=== PATIENT | female | born 1955 | race Caucasian/White ===

== ENCOUNTER 2017-11-14 08:00 | Outpatient (CLI) | payer OTHER ==
[2017-11-14 13:16] LABS: BASOPHILS % (AUTO) 0.4 %; EOSINOPHILS # (AUTO) 0.1 10^3/uL (0.0-0.7); HGB - HEMOGLOBIN 13.1 g/dL (12.0-16.0); LYMPHOCYTES # (AUTO) 0.8 10^3/uL (1.5-3.5); LYMPHOCYTES % (AUTO) 25.8 %; MEAN CORPUSCULAR HEMOGLOBIN 29.7 pg (27.0-31.0); MEAN CORPUSCULAR HGB CONC 34.8 g/dL (32.0-36.0); MEAN CORPUSCULAR VOLUME 85.4 fL (81.0-99.0); MEAN PLATELET VOLUME 7.9 fL (7.9-10.8); MONOCYTES # (AUTO) 0.2 10^3/uL (0.0-1.0); MONOCYTES % (AUTO) 6.8 %; PLT - PLATELET COUNT 189 10^3/uL (130-450); RED CELL DISTRIBUTION WIDTH 13.8 % (12.0-15.0); WHITE BLOOD COUNT 3.1 x10^3/uL (4.8-10.8)
[2017-11-14 13:40] LABS: HB2 TOTAL 13.4 g/dL; HEMOGLOBIN A1C 0.46 g/dL; HEMOGLOBIN A1C % 5.3 % (4.6-6.2)
[2017-11-14 13:45] LABS: ALBUMIN/GLOBULIN RATIO 1.6 (1.0-2.2); ALKALINE PHOSPHATASE 69 IU/L (42-121); ALT ALANINE AMINOTRANSFERASE 14 IU/L (10-60); AST ASPARTATE AMINOTRANSFERASE 20 IU/L (10-42); BILIRUBIN,TOTAL 0.5 mg/dL (0.2-1.0); BUN - BLOOD UREA NITROGEN 19 mg/dL (6-20); CALCIUM 8.9 mg/dL (8.5-10.3); CARBON DIOXIDE - CO2 29 mmol/L (21-32); CHLORIDE 102 mmol/L (101-111); CHOL/HDL RATIO 3.4 (<4.4); CHOLESTEROL 185 mg/dL; CREATININE 0.7 mg/dL (0.4-1.0); GFR - MDRD 85 (>89); GLUCOSE 105 mg/dL (70-100); HDL CHOLESTEROL 54 mg/dL; LDL CHOLESTEROL,CALCULATED 122 mg/dL; LDL/HDL RATIO 2.3 (<4.4); SODIUM 138 mmol/L (135-145); TOTAL PROTEIN 6.5 g/dL (6.7-8.2); VLDL CHOLESTEROL 9 mg/dL
[2017-11-14 13:46] LABS: THYROID STIMULATING HORMONE 1.77 uIU/mL (0.34-5.60)
[2017-11-14 13:48] LABS: FREE T4 (FREE THYROXINE) 0.95 ng/dL (0.58-1.64)
== END 2017-11-14 08:01 | disposition home or self-care (01) ==
LOC: LAB.WCP 08:00
PROVIDERS: ATTEND Physician Assistant
DX: Z00.00 Encounter for general adult medical examination without abnormal findings (principal); Z13.220 Encounter for screening for lipoid disorders; E03.9 Hypothyroidism, unspecified
CPT/HCPCS: 36415; 80053; 80061; 83036; 83721; 84439; 84443; 85025

== ENCOUNTER 2018-10-02 08:00 | Outpatient (CLI) | payer OTHER ==
[2018-10-02 14:25] LABS: H. PYLORIS ANTIGEN STL NEGATIVE (Negative)
== END 2018-10-02 23:59 | disposition home or self-care (01) ==
LOC: LAB.WCP 08:00
PROVIDERS: ATTEND Physician Assistant
DX: R19.7 Diarrhea, unspecified (principal)
CPT/HCPCS: 87045; 87046; 87177; 87209; 87338; 87493

== ENCOUNTER 2019-01-28 07:00 | Outpatient (CLI) | payer OTHER | END 2019-01-28 23:59 | disposition home or self-care (01) | LOC: LAB.WCP 07:00 | PROVIDERS: ATTEND Physician Assistant | DX: E03.9 Hypothyroidism, unspecified (principal) | CPT/HCPCS: 36415; 84443 ==

== ENCOUNTER 2019-02-01 08:00 | Outpatient (CLI) | payer OTHER ==
[2019-02-01 12:17] LABS: BASOPHILS % (AUTO) 0.5 %; EOSINOPHILS # (AUTO) 0.1 10^3/uL (0.0-0.7); EOSINOPHILS % (AUTO) 3.1 %; HGB - HEMOGLOBIN 12.6 g/dL (12.0-16.0); LYMPHOCYTES # (AUTO) 1.2 10^3/uL (1.5-3.5); LYMPHOCYTES % (AUTO) 29.3 %; MEAN CORPUSCULAR HEMOGLOBIN 28.9 pg (27.0-31.0); MEAN CORPUSCULAR HGB CONC 32.9 g/dL (32.0-36.0); MEAN CORPUSCULAR VOLUME 87.8 fL (81.0-99.0); MEAN PLATELET VOLUME 9.5 fL (7.9-10.8); MONOCYTES # (AUTO) 0.4 10^3/uL (0.0-1.0); MONOCYTES % (AUTO) 10.1 %; NEUTROPHILS # (AUTO) 2.4 10^3/uL (1.5-6.6); NEUTROPHILS % (AUTO) 56.5 %; PLT - PLATELET COUNT 213 10^3/uL (130-450); RED BLOOD COUNT 4.36 10^6/uL (4.20-5.40); RED CELL DISTRIBUTION WIDTH 14.2 % (12.0-15.0); WHITE BLOOD COUNT 4.2 x10^3/uL (4.8-10.8)
[2019-02-01 12:29] LABS: ALBUMIN/GLOBULIN RATIO 1.7 (1.0-2.2); CALCIUM 8.5 mg/dL (8.5-10.3); CREATININE 0.9 mg/dL (0.4-1.0); TOTAL PROTEIN 6.3 g/dL (6.7-8.2)
== END 2019-02-01 23:59 | disposition home or self-care (01) ==
LOC: LAB.WCP 08:00
PROVIDERS: ATTEND Physician Assistant
DX: R10.84 Generalized abdominal pain (principal)
CPT/HCPCS: 36415; 80053; 85025

== ENCOUNTER 2019-02-04 14:53 | Outpatient (CLI) | payer OTHER ==
[2019-02-04] MEDS ORDERED: IOVERSOL 320 50 ML VIAL ONE (14:58)
[2019-02-04] MEDS ORDERED: IOVERSOL 320 100 ML VIAL IVP ONE ×2 (14:58→17:38)
[2019-02-04] MEDS ORDERED: IOVERSOL 320 50 ML VIAL PO ONE (17:38)
--- NOTE | 2019-02-05 11:20 | CT Report ---
Reason: ABD PAIN Procedure Date: 02/04/2019 Accession Number: [id number] / [id number] Procedure: CT - Abdomen/Pelvis W CPT Code: Final Report FULL RESULT: EXAM: CT ABDOMEN AND PELVIS EXAM DATE: 02/04/2019 04:11 PM. CLINICAL HISTORY: Abdominal pain. COMPARISONS: None. TECHNIQUE: Routine helical CT imaging was performed through the abdomen and pelvis. IV contrast: OPTIRAY 320; 100 mL. Enteric contrast: No. Reconstructions: Coronal and sagittal. In accordance with CT protocol optimization, one or more of the following dose reduction techniques were utilized for this exam: automated exposure control, adjustment of mA and/or KV based on patient size, or use of iterative reconstructive technique. FINDINGS: Lung Bases: Small to moderate hiatal hernia. No cardiac enlargement. No pleural or pericardial effusion. Liver: Normal. No masses. Gallbladder/Bile Ducts: Multiple gallstones are noted. Gallbladder is mildly distended and has a somewhat tensed appearance. Calcifications and wall thickening are noted near the fundus on image 4, 38. Mild adjacent fat stranding is noted near the fundus of the gallbladder best seen on image 6, 19. Apparent stone in the gallbladder neck or fundus best seen on image 6, 31. No common bile duct dilation. Spleen: Enlarged, 16.3 cm in length. No mass. Pancreas: Normal. Adrenal Glands: Normal. Kidneys: Normal. No masses or hydronephrosis. Peritoneal Cavity/Bowel: No pneumoperitoneum, adenopathy, mass or acute inflammation. Small volume ascites is noted. There are multiple diverticula seen which most severely affect the sigmoid colon. No wall thickening or adjacent inflammation seen. No obstruction noted. Appendix not seen. No right lower quadrant inflammation. Patient is status post gastric banding. Gastric band is in normal alignment. Remaining stomach, small bowel and large bowel are normal. Pelvic Organs: Uterus is absent. Normal bladder. Small-volume ascites is noted in the pelvis. Both ovaries and adnexa are grossly unremarkable for the patient's age. Possible left adnexal calcification noted on image 4, 71. No collection, pelvic mass or adenopathy. Vasculature: Diffuse atheromatous plaques are present in the abdominal aorta and branch vessels. No aneurysm. Normal IVC. Bones: No significant abnormality. Other: None. IMPRESSION: 1. Multiple gallstones with mildly distended gallbladder. Apparent calcification in the gallbladder neck or proximal cystic duct noted. Mild fat stranding near the fundus could represent early acute cholecystitis. Fundal wall thickening with evidence of wall calcification could represent a component of porcelain gallbladder possibly due to chronic cholecystitis. Correlate clinically. Ultrasound and/or nuclear medicine hepatobiliary study may be helpful for further evaluation. 2. No liver mass or intrahepatic bile duct dilation. Portal vein is patent. 3. Diverticulosis without active inflammation. 4. Previous hysterectomy. 5. Splenomegaly. No mass. 6. Status post gastric banding. Normal alignment of the gastric band. Small to moderate hiatal hernia. RADIA
== END 2019-02-04 14:54 | disposition home or self-care (01) ==
LOC: DI 14:53
PROVIDERS: ATTEND Physician Assistant
DX: K80.80 Other cholelithiasis without obstruction (principal); K57.30 Diverticulosis of large intestine without perforation or abscess without bleeding; R16.1 Splenomegaly, not elsewhere classified; K44.9 Diaphragmatic hernia without obstruction or gangrene; Z90.710 Acquired absence of both cervix and uterus
CPT/HCPCS: 74177; Q9967

== ENCOUNTER 2019-03-14 06:06 | Day surgery (SDC) | payer OTHER ==
[2019-03-14] MEDS ORDERED: fentaNYL 250 MCG/5 ML VIAL IVP ONE (06:07)
[2019-03-14] MEDS ORDERED: MIDAZOLAM 2 MG/2 ML VIAL IVP ONE (06:07)
[2019-03-14] MEDS ORDERED: LACTATED RINGERS 1,000 ML IV ONE (06:57)
[2019-03-14 09:04] VITALS: BP 112/58
== END 2019-03-14 06:07 | disposition home or self-care (01) ==
LOC: SDS 06:06
PROVIDERS: ATTEND Surgery
PROC: 0DBL8ZZ Excision of Transverse Colon, Via Natural or Artificial Opening Endoscopic (ICD-10-PCS; 2019-03-14)
PROC: 0DBE8ZX Excision of Large Intestine, Via Natural or Artificial Opening Endoscopic, Diagnostic (ICD-10-PCS; principal; 2019-03-14 07:30)
DX: K57.30 Diverticulosis of large intestine without perforation or abscess without bleeding (principal); D12.3 Benign neoplasm of transverse colon; K64.8 Other hemorrhoids; Z98.84 Bariatric surgery status
CPT/HCPCS: 45380; 83630; 87015; 87177; 87209; 87272; 87329; 87493; J3010; J7120

== ENCOUNTER 2020-03-02 14:10 | Outpatient (CLI) | payer MEDICARE, OTHER ==
[2020-03-02 18:01] LABS: EOSINOPHILS % (AUTO) 2.2 %; HGB - HEMOGLOBIN 8.9 g/dL (12.0-16.0); LYMPHOCYTES # (AUTO) 0.4 10^3/uL (1.5-3.5); LYMPHOCYTES % (AUTO) 27.9 %; MEAN CORPUSCULAR HEMOGLOBIN 22.5 pg (27.0-31.0); MEAN CORPUSCULAR HGB CONC 28.5 g/dL (32.0-36.0); MEAN CORPUSCULAR VOLUME 78.8 fL (81.0-99.0); MEAN PLATELET VOLUME 10.1 fL (7.9-10.8); MONOCYTES # (AUTO) 0.2 10^3/uL (0.0-1.0); NEUTROPHILS # (AUTO) 0.8 10^3/uL (1.5-6.6); NEUTROPHILS % (AUTO) 58.2 %; PLT - PLATELET COUNT 155 10^3/uL (130-450); RED BLOOD COUNT 3.96 10^6/uL (4.20-5.40); RED CELL DISTRIBUTION WIDTH 16.9 % (12.0-15.0)
[2020-03-02 18:14] LABS: ALBUMIN 3.8 g/dL (3.2-5.5); ALBUMIN/GLOBULIN RATIO 1.4 (1.0-2.2); ALKALINE PHOSPHATASE 101 IU/L (42-121); ALT ALANINE AMINOTRANSFERASE 16 IU/L (10-60); AST ASPARTATE AMINOTRANSFERASE 18 IU/L (10-42); BILIRUBIN,TOTAL 0.6 mg/dL (0.2-1.0); BUN - BLOOD UREA NITROGEN 14 mg/dL (6-20); CALCIUM 8.7 mg/dL (8.5-10.3); CARBON DIOXIDE - CO2 26 mmol/L (21-32); CHLORIDE 102 mmol/L (101-111); CHOL/HDL RATIO 4.8 (<4.4); CHOLESTEROL 145 mg/dL; CREATININE 0.8 mg/dL (0.4-1.0); GLUCOSE 109 mg/dL (70-100); HDL CHOLESTEROL 30 mg/dL; LDL CHOLESTEROL,CALCULATED 96 mg/dL; LDL/HDL RATIO 3.2 (<4.4); SODIUM 136 mmol/L (135-145); TOTAL PROTEIN 6.5 g/dL (6.7-8.2); VLDL CHOLESTEROL 19 mg/dL
[2020-03-02 18:51] LABS: FOLLICLE STIMULATING HORMONE 63.09 mIU/mL
[2020-03-02 19:58] LABS: PLATELET ESTIMATE, MANUAL NORMAL (130-450,000) (NORMAL); PLATELET MORPHOLOGY NORMAL APPEARANCE (NORMAL)
[2020-03-03 19:03] LABS: WHITE BLOOD COUNT 1.4 x10^3/uL (4.8-10.8)
[2020-03-03 19:10] LABS: % IRON SATURATION 5 % (20-50); IRON 25 ug/dL (28-170); TOTAL IRON BINDING CAPACITY 468 ug/dL (250-450); TRANSFERRIN 334 mg/dL (192-382)
== END 2020-03-02 23:59 | disposition home or self-care (01) ==
LOC: LAB.WCP 14:10
PROVIDERS: ATTEND Physician Assistant
DX: N95.1 Menopausal and female climacteric states (principal); D64.9 Anemia, unspecified; E03.9 Hypothyroidism, unspecified
CPT/HCPCS: 36415; 80050; 80061; 82728; 83001; 83540; 83721; 84466

== ENCOUNTER 2020-03-23 08:00 | Outpatient (CLI) | payer MEDICARE, OTHER ==
[2020-03-23 18:42] LABS: EOSINOPHILS % (AUTO) 2.2 %; HGB - HEMOGLOBIN 8.2 g/dL (12.0-16.0); LYMPHOCYTES # (AUTO) 0.3 10^3/uL (1.5-3.5); LYMPHOCYTES % (AUTO) 24.6 %; MEAN CORPUSCULAR HGB CONC 28.3 g/dL (32.0-36.0); MEAN PLATELET VOLUME 9.7 fL (7.9-10.8); MONOCYTES # (AUTO) 0.2 10^3/uL (0.0-1.0); MONOCYTES % (AUTO) 11.6 %; NEUTROPHILS # (AUTO) 0.8 10^3/uL (1.5-6.6); NEUTROPHILS % (AUTO) 60.9 %; PLT - PLATELET COUNT 134 10^3/uL (130-450); RED BLOOD COUNT 3.72 10^6/uL (4.20-5.40); RED CELL DISTRIBUTION WIDTH 17.3 % (12.0-15.0)
[2020-03-23 18:49] LABS: ALBUMIN 3.8 g/dL (3.2-5.5); ALBUMIN/GLOBULIN RATIO 1.5 (1.0-2.2); BILIRUBIN,TOTAL 0.9 mg/dL (0.2-1.0); CALCIUM 9.2 mg/dL (8.5-10.3); CREATININE 0.9 mg/dL (0.4-1.0); TOTAL PROTEIN 6.3 g/dL (6.7-8.2)
[2020-03-23 19:36] LABS: PLATELET ESTIMATE, MANUAL DECREASED (<130,000) (NORMAL); PLATELET MORPHOLOGY NORMAL APPEARANCE (NORMAL)
[2020-03-23 20:29] LABS: WHITE BLOOD COUNT 1.4 x10^3/uL (4.8-10.8)
== END 2020-03-23 23:59 | disposition home or self-care (01) ==
LOC: LAB.WCP 08:00
PROVIDERS: ATTEND Physician Assistant
DX: D61.818 Other pancytopenia (principal)
CPT/HCPCS: 36415; 80053; 85025

== ENCOUNTER 2020-04-21 08:00 | Outpatient (CLI) | payer MEDICARE, OTHER | END 2020-04-21 23:59 | disposition home or self-care (01) | LOC: LAB.R 08:00 | PROVIDERS: ATTEND Physician Assistant Medical | DX: N39.0 Urinary tract infection, site not specified (principal) | CPT/HCPCS: 87077; 87086; 87181 ==

== ENCOUNTER 2020-07-16 08:52 | Outpatient (CLI) | payer MEDICARE, OTHER | END 2020-07-16 08:53 | disposition home or self-care (01) | LOC: DI 08:52 | PROVIDERS: ATTEND Physician Assistant Medical | DX: I51.7 Cardiomegaly (principal); I35.1 Nonrheumatic aortic (valve) insufficiency | CPT/HCPCS: 93306 ==

== ENCOUNTER 2020-07-27 16:44 | Outpatient (CLI) | payer MEDICARE, OTHER | END 2020-07-27 16:45 | disposition home or self-care (01) | LOC: COV 16:44 | PROVIDERS: ATTEND Surgery | DX: Z01.812 Encounter for preprocedural laboratory examination (principal); D64.9 Anemia, unspecified; D46.9 Myelodysplastic syndrome, unspecified; Z20.822 Contact with and (suspected) exposure to COVID-19 ==

== ENCOUNTER 2020-07-28 07:41 | Day surgery (SDC) | payer MEDICARE, OTHER ==
[2020-07-28] MEDS ORDERED: LACTATED RINGERS 1,000 ML IV ONE ×3 (08:03→12:10)
[2020-07-28] MEDS: ONDANSETRON 4 MG/2 ML VIAL ONE ×2 (08:23→11:55)
[2020-07-28] MEDS ORDERED: MIDAZOLAM 2 MG/2 ML VIAL ONE ×4 (10:11→10:53)
[2020-07-28] MEDS ORDERED: fentaNYL 250 MCG/5 ML VIAL ONE (10:12)
[2020-07-28] MEDS ORDERED: PROPOFOL 200 MG/20 ML VIAL IVP ONE (10:55)
[2020-07-28] MEDS ORDERED: ONDANSETRON 4 MG/2 ML VIAL ONE (11:50)
[2020-07-28] MEDS ORDERED: SCOPOLAMINE PATCH TOP ONE (12:08)
[2020-07-28 12:37] VITALS: BP 140/71
== END 2020-07-28 07:42 | disposition home or self-care (01) ==
LOC: SDS 07:41
PROVIDERS: ATTEND Surgery
PROC: 0DB78ZX Excision of Stomach, Pylorus, Via Natural or Artificial Opening Endoscopic, Diagnostic (ICD-10-PCS; principal; 2020-07-28 09:00)
DX: D50.9 Iron deficiency anemia, unspecified (principal); K57.30 Diverticulosis of large intestine without perforation or abscess without bleeding; K62.2 Anal prolapse; K29.50 Unspecified chronic gastritis without bleeding; K44.9 Diaphragmatic hernia without obstruction or gangrene; K20.90 Esophagitis, unspecified without bleeding; T88.52XA Failed moderate sedation during procedure, initial encounter; E07.9 Disorder of thyroid, unspecified; F32.9 Major depressive disorder, single episode, unspecified; F41.9 Anxiety disorder, unspecified; Z79.899 Other long term (current) drug therapy
CPT/HCPCS: 43239; 45378; J3010; J3490; J7120

== ENCOUNTER 2020-08-06 09:29 | Outpatient (CLI) | payer MEDICARE, OTHER ==
--- NOTE | 2020-08-06 16:43 | Ultrasound Report ---
PROCEDURE: Abdomen Complete INDICATIONS: PANCYTOPENIA TECHNIQUE: Real-time scanning was performed of the abdominal and retroperitoneal organs, with image documentatio n. COMPARISON: None. FINDINGS: Liver: Liver is normal in size and homogeneous in echotexture. Liver demonstrates normal echotexture . No focal hepatic mass lesions. Gallbladder: Gallstones and sludge noted in the gallbladder lumen. Gallbladder wall is normal in thic kness measuring 1.4 mm. No pericholecystic fluid. No sonographic Cash sign. Biliary ducts: Intrahepatic bile ducts are non-dilated. Extrahepatic bile duct caliber measures 6.0 mm. Normal is 6-7 mm or less in diameter, or 10 mm or less post-cholecystectomy. Pancreas: Visualized portions of the pancreas are sonographically normal. Spleen: Spleen is enlarged measuring 27.3 x 23.7 x 12.4 cm. Spleen is homogeneous in echotexture. Kidneys: Kidneys are normal in size and echotexture. Right kidney measures 11.2 cm long; left kidne y measures 8.6 cm long. No hydronephrosis or nephrolithiasis. No solid masses. There is a 1.2 x 1.0 1.0 cm right renal cyst. Aorta: Visualized aorta is normal in caliber at less than 3 cm. Iliacs: Obscured by bowel gas and cannot be evaluated. IVC: Intrahepatic inferior vena cava is patent. Miscellaneous: Small amount of scattered ascites. IMPRESSION: 1. Splenomegaly. 2. Cholelithiasis without sonographic evidence of cholecystitis. 3. Left renal atrophy. 4. Ascites. Reviewed by: Kizzy Whitaker MD, PhD on 08/06/2020 4:41 PM PDT Approved by: Kizzy Whitaker MD, PhD on 08/06/2020 4:41 PM PDT Station ID: [id number]
== END 2020-08-06 09:30 | disposition home or self-care (01) ==
LOC: DI 09:29
PROVIDERS: ATTEND Internal Medicine Hematology & Oncology
DX: R16.1 Splenomegaly, not elsewhere classified (principal); K80.20 Calculus of gallbladder without cholecystitis without obstruction; N26.1 Atrophy of kidney (terminal); R18.8 Other ascites

== ENCOUNTER 2020-10-07 16:40 | Emergency (ER) | payer MEDICARE, OTHER ==
[2020-10-07] MEDS ORDERED: oxyCODONE 5 MG TABLET PO STA (17:02)
[2020-10-07] MEDS ORDERED: ONDANSETRON ODT 4 MG TABLET TL STA (17:09)
--- NOTE | 2020-10-07 17:11 | ED Physician Documentation ---
PD HPI ABD PAIN - Stated complaint Stated Complaint: LEFT SIDED PX, SWOLLEN ABD,NAUSEA,DIARRHEA - Chief complaint Chief Complaint: Abd Pain - History obtained from History obtained from: Patient - Additional information Additional information: 65-year-old woman has been dealing with symptomatic splenomegaly for the last 3 months. She is in the midst of a thorough work-up suggesting probably a malign ant cause. Heme-onc notes were reviewed. Has a PET scan this Monday. She is here for symptom relief, Mostly nausea, diarrhea, and Left-sided abdominal pain. 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 - Present Medications Home Medications: Ambulatory Orders Medication Instructions Recorded Confirmed Levothyroxine [Synthroid] 88 mcg PO DAILY 03/13/19 09/25/20 Ondansetron Odt [Zofran Odt] 4 mg PO DAILY 03/14/19 09/25/20 Vit B Comp C No.24/Iron/Folic 1 tab PO DAILY 07/27/20 09/25/20 [Nephron FA Tablet] Ondansetron Odt [Zofran] 4 mg TL Q6H PRN #30 tablet 10/07/20 oxyCODONE [Roxicodone] 1 - 2 tab PO Q6H PRN #30 tablet 10/07/20 - Allergies Allergies/Adverse Reactions: Allergies Allergy/AdvReac Type Severity Reaction Status Date / Time lidocaine Allergy Unknown Verified 10/07/20 16:49 plastic nurse tape Allergy Rash Uncoded 10/07/20 16:49 - Social History Smoking Status: Former smoker PD ED PE NORMAL - Vitals Vital signs reviewed: Yes - General General: Alert and oriented X 3, No acute distress - Abdomen Abdomen: Normal bowel sounds, Soft, Other (Distended abdomen which is nontender, bedside ultrasound demonstrates small volume ascites, massive splenomegaly, slightly dilated but nontender gallbladder with stones and sludge, and trace ascites.) - Neuro Neuro: Alert and oriented X 3, Normal speech Results - Vitals Vitals: Vital Signs - 24 hr 10/07/20 10/07/20 16:49 17:42 Temperature 36.5 C 36.9 C Heart Rate 96 98 Respiratory 16 20 Rate Blood Pressure 159/67 H 154/69 H O2 Saturation 96 96 Oxygen O2 Source Room air PD MEDICAL DECISION MAKING - ED course ED course: 65-year-old woman with increasing pain from splenomegaly, likely a malignant source. Here for pain management which is not unreasonable. I am prescribing a short course of short-acting opioid pain medication for this patient. I have reviewed the patients [employer] and no concerning findings were noted. I have discussed that the opioids are for short term therapy only, and will not be refilled from the ED. Departure - Departure Disposition: Home, Self Care Clinical Impression: Abdominal pain, Splenomegaly Condition: Good Record reviewed to determine appropriate education?: Yes Prescriptions: oxyCODONE [Roxicodone] 1 - 2 tab PO Q6H PRN #30 tablet PRN Reason: Pain Ondansetron Odt [Zofran] 4 mg TL Q6H PRN #30 tablet PRN Reason: Nausea / Vomiting Comments: Follow-up for further evaluation and treatment as scheduled by your own neurologist. Return for new or worsening symptoms. I am prescribing a short course of narcotic pain medication for you. These are potentially dangerous and addictive medications that should be used carefully. These medications may constipate you. Take an btgq-cyo-wtetstj stool softener (docusate) twice daily with plenty of water while taking these medications. If you go 24 hours without a bowel movement, take ecce-owj-dddculx miralax, per package instructions. Do not drink or drive while taking these medications. If you received narcotic or sedating medications while in the emergency department, do not drive for 24 hours. Store this medication in a safe, secure place and out of reach of children. It is a violation of federal law to give or sell this medication to another person or to use in a manner other than prescribed. The ED will not refill narcotic prescriptions, including prescriptions lost or stolen. To dispose of unwanted medications: 1. [facility] [address] in [place] has a medication drop box. They accept prescription medications (in pill form) Monday through Monday 9:00 a.m. to 5:00 p.m. 2. [facility], [place] [employer] accepts prescription medications (in pill form only) for disposal year round. Call for more information. 3. Contact the [facility] for the next [facility] sponsored prescription drug collection event. , [phone], or [phone]; Note that many narcotic pain relievers also contain Tylenol/acetaminophen. Please ensure that your total dose of acetaminophen from all sources does not exceed 3 g (3000 mg) per day. Discharge Date/Time: 10/07/20 17:44
[2020-10-07 17:43] VITALS: BP 154/69
== END 2020-10-07 17:44 | disposition home or self-care (01) ==
LOC: ED 16:40
DX: R16.1 Splenomegaly, not elsewhere classified (principal); Z87.891 Personal history of nicotine dependence
CPT/HCPCS: 99282; 99283; A9270; Q0162

== ENCOUNTER 2020-10-19 12:03 | Day surgery (SDC) | payer MEDICARE, OTHER ==
[~2020-10-19 12:03] MED LIST: ceFAZolin 2 GM/50 ML 2 GM/50 ML BAG IV ONE
[2020-10-19] MEDS ORDERED: ceFAZolin 2 GM/50 ML 2 GM/50 ML BAG IV ONE (12:08)
[2020-10-19] MEDS ORDERED: ROCURONIUM 50 MG/5 ML VIAL ONE (12:35)
[2020-10-19] MEDS ORDERED: MIDAZOLAM 2 MG/2 ML VIAL ONE (12:35)
[2020-10-19] MEDS ORDERED: fentaNYL 100 MCG/2 ML VIAL ONE (12:36)
[2020-10-19] MEDS ORDERED: BUPIVACAINE 0.5% PF 10 ML VIAL ONE ×2 (12:46)
[2020-10-19] MEDS ORDERED: LIDOCAINE 2%-EPI 1:100000 20 ML MDV ONE (12:46)
[2020-10-19] MEDS ORDERED: LACTATED RINGERS 1,000 ML IV ONE ×2 (12:50→14:32)
--- NOTE | 2020-10-19 12:57 | ANESTHESIA ---
Pre-Anesthesia VS, & Labs - Diagnosis Adenopathy, splenomegaly, myodysplasia - Procedure diagnostic lap Vital Signs: Temp Pulse Resp BP Pulse Ox 36.9 C 88 20 136/49 H 98 10/19/20 12:15 10/19/20 12:15 10/19/20 12:15 10/19/20 12:15 10/19/20 12:15 Height: 5 ft 3 in Weight (kg): 67 kg Body Mass Index: 26.2 BMI Classification: Overweight - NPO >8 hours - Is Patient ?: No Home Medications and Allergies Levothyroxine [Synthroid] 88 mcg PO DAILY 03/13/19 Vit B Comp C No.24/Iron/Folic [Nephron FA Tablet] 1 tab PO DAILY 07/27/20 Allergies/Adverse Reactions: Allergies Allergy/AdvReac Type Severity Reaction Status Date / Time bupropion [From Wellbutrin] Allergy Severe Anaphylaxis Verified 10/19/20 12:34 lidocaine Allergy Severe Anaphylaxis Verified 10/19/20 12:34 plastic nurse tape Allergy Rash Uncoded 10/19/20 12:34 Anes History & Medical History - Anesthetic History Anesthesia Complications: reports: Post-Operative Nausea/Vomiting - Medical History Cardiovascular: reports: None Pulmonary: reports: None Gastrointestinal: reports: Other Urinary: reports: None Musculoskeletal: reports: None Endocrine/Autoimmune: reports: HyPOthyroidism Blood Disorders: reports: Anemia Skin: reports: None Smoking Status: Former smoker Psychosocial: reports: Depression, Anxiety History of Cancer?: No - Surgical History General: reports: Appendectomy, Other Gynecologic: reports: Hysterectomy, Breast reduction Exam General: Alert, Oriented x3, Cooperative, No acute distress Dental: WNL Mouth Openin Fingerbreadth Neck Mobility: Normal Mallampati classification: II Thyromental Distance: 4-6 cm Respiratory: Lungs clear, Normal breath sounds, No respiratory distress, No accessory muscle use Cardiovascular: Regular rate, Normal S1, Normal S2, No murmurs Mental/Cognitive Status: Alert/Oriented X3, Normal for patient Plan Anesthesia Type: General Consent for Procedure(s) Verified and Reviewed: Yes Code Status: Attempt Resuscitation ASA classification: 3-Severe systemic disease Is this case an emergency?: No
[2020-10-19 13:10] LABS: HCT - HEMATOCRIT 25.8 % (37.0-47.0); HGB - HEMOGLOBIN 7.9 g/dL (12.0-16.0); MEAN CORPUSCULAR HEMOGLOBIN 27.1 pg (27.0-31.0); MEAN CORPUSCULAR HGB CONC 30.6 g/dL (32.0-36.0); MEAN CORPUSCULAR VOLUME 88.7 fL (81.0-99.0); MEAN PLATELET VOLUME 9.1 fL (7.9-10.8); RED BLOOD COUNT 2.91 10^6/uL (4.20-5.40); RED CELL DISTRIBUTION WIDTH 13.8 % (12.0-15.0); WHITE BLOOD COUNT 2.3 x10^3/uL (4.8-10.8)
[2020-10-19] MEDS ORDERED: NALOXONE 0.4 MG/ML VIAL IVP PRN (13:10)
[2020-10-19] MEDS ORDERED: fentaNYL 100 MCG/2 ML VIAL IVP PRN (13:10)
[2020-10-19] MEDS ORDERED: ATROPINE ABBOJECT 1 MG/10 ML SYRINGE IVP PRN (13:10)
[2020-10-19] MEDS ORDERED: ONDANSETRON 4 MG/2 ML VIAL IVP PRN ×2 (13:10→14:37)
[2020-10-19] MEDS ORDERED: HYDROmorphone 0.5 MG/0.5 ML SYRINGE IVP PRN (13:10)
[2020-10-19] MEDS ORDERED: MORPHINE 2 MG/ML CARPUJECT IVP PRN (13:10)
[2020-10-19] MEDS ORDERED: SCOPOLAMINE PATCH TOP ONE (13:13)
[2020-10-19] MEDS ORDERED: DEXAMETHASONE 4 MG/ML VIAL ONE (13:41)
[2020-10-19] MEDS ORDERED: BUPIVACAINE 0.5% PF 10 ML VIAL SUBQ ONE ×2 (13:52→14:30)
[2020-10-19] MEDS ORDERED: SCOPOLAMINE PATCH TOP SCH (14:00)
[2020-10-19] MEDS ORDERED: LACTATED RINGERS 1,000 ML IV SCH (14:00)
[2020-10-19] MEDS ORDERED: SUGAMMADEX 200 MG/2 ML VIAL IVP ONE (14:19)
[2020-10-19] MEDS ORDERED: HYDROmorphone 1 MG/ML CARPUJECT ONE (14:22)
--- NOTE | 2020-10-19 14:30 | OPERATIVE REPORT ---
Operative Report - General Procedure Date: 10/19/20 Planned Procedure: Diagnostic laparoscopy with biopsy Pre-Op Diagnosis: Myelodysplastic disorder with splenomegaly Procedure Performed: Diagnostic laparoscopy with aspiration of ascites fluid, omental biopsy, and biopsy of the colon mesentery Post Op Diagnosis: Myelodysplastic disorder with splenomegaly and massive ascites - Procedure Note Primary Surgeon: Luz Elena Anesthesia Provider: DAMASO Andrews Anesthesia Technique: General ET tube Pathology: 1. Ascites fluid 2. Portions of omentum and mesentery Estimated Blood Loss (mL): 50 Indications: Myelodysplastic syndrome with need of confirming biopsy Findings: Dense adhesion of the mesentery of the colon to the right lateral abdominal wall Enlarged and heterogeneous appearing spleen. 4.5 liters of sanguinous ascites fluid Complications: None apparent - Other Other Information/Narrative: After obtaining informed consent, the patient is brought to the operating room placed in supine position on the operating table. Following successful induction of general endotracheal anesthesia, appropriate padding of all bony prominences, and placement appropriate monitors, the abdomen was prepped and draped in the standard surgical fashion. A timeout was held per scope protocol. All elements of the surgical safety checklist were followed before, during, and after the procedure. We began the procedure by infiltrating Marcaine inferior to the umbilicus in the position of her prior laparoscopic incision. No lidocaine was used as the patient has a documented allergy.An incision was created here and carried through the skin to reveal the fascia below. 2-0 Vicryl retention sutures were placed on either side of the midline and the abdomen was entered under direct vision using a scalpel. We immediately noted a large volume of sanguinous ascites. A pool suction device was used to evacuate 4.5 L of this fluid. A sample was obtained and submitted for pathology.A second 5 mm trocar was placed in the left lower quadrant and a third 5 mm trocar in the left upper quadrant. The spleen and intra-abdominal wall was examined. We noted dense adhesions of the omentum and colon to the right lateral abdominal wall and upper portion of the abdomen along the tract of the existing lap band. On the left side, there were relatively fewer adhesions. The spleen was notably enlarged and very heterogeneous in appearance. The mesentery of the colon was thick in appearance but otherwise grossly normal. A portion of this was grasped with an atraumatic grasper and liberated from its attachment to the colon using a LigaSure device. This was essentially an appendices epiploicae.A portion of the omentum of the superior abdominal wall appeared more globular than usual perhaps even consistent with a lymph node and was somewhat thickened. This was obtained in the same manner and submitted with the portion of mesentery.No other grossly abnormal structures were appreciated. I elected to end the procedure here. I felt that it was too risky to try to biopsy the spleen directly and I did not see any other gross abnormalities. We chose the targets we did based on the findings of the PET scan and the abnormal appearance of the bowel on both PET and PET/CT.The abdomen was desufflated using a closed suction device. The incisions were closed in Vicryl and Monocryl sutures with Dermabond applied to the skin. All sponge, needle, and instrument counts were correct at the conclusion the case. The patient tolerated procedure very well and was allowed awaken from anesthesia. She taken to the postanesthesia care unit in good condition.
[2020-10-19] MEDS ORDERED: oxyCODONE 5 MG TABLET PO PRN (14:37)
[2020-10-19] MEDS ORDERED: IBUPROFEN 600 MG TABLET PO PRN (14:37)
[2020-10-19] MEDS ORDERED: ACETAMINOPHEN 325 MG TABLET PO PRN (14:37)
[2020-10-19] MEDS ORDERED: METOCLOPRAMIDE 10 MG/2 ML VIAL ONE (15:31)
[2020-10-19] MEDS ORDERED: LORazepam 2 MG/ML VIAL ONE (15:32)
--- NOTE | 2020-10-19 16:03 | ANESTHESIA POST OP EVALUATION ---
Anesthesia Post Eval - Post Anesthesia Eval Vitals: Last Vital Signs Temp 36.1 C L 10/19/20 15:56 Pulse 92 10/19/20 15:56 Resp 20 10/19/20 15:56 BP 129/48 L 10/19/20 15:56 Pulse Ox 93 10/19/20 15:56 CV Function Including HR & BP: Stable Pain Control: Satisfactory Nausea & Vomiting: Negative Mental Status: Baseline Respiratory Status: Airway Patent Hydration Status: Satisfactory Anesthesia Complications: None
[2020-10-19 16:28] VITALS: BP 125/52
== END 2020-10-19 12:04 | disposition home or self-care (01) ==
LOC: SDS 12:03
PROVIDERS: ATTEND Surgery
PROC: 0WBH4ZX Excision of Retroperitoneum, Percutaneous Endoscopic Approach, Diagnostic (ICD-10-PCS; principal; 2020-10-19 13:15)
DX: C94.6 Myelodysplastic disease, not elsewhere classified (principal); R16.1 Splenomegaly, not elsewhere classified; R18.8 Other ascites; I89.8 Other specified noninfective disorders of lymphatic vessels and lymph nodes; K65.8 Other peritonitis; K66.0 Peritoneal adhesions (postprocedural) (postinfection); I35.1 Nonrheumatic aortic (valve) insufficiency; F41.8 Other specified anxiety disorders; E03.9 Hypothyroidism, unspecified; Z98.84 Bariatric surgery status; Z87.891 Personal history of nicotine dependence; Z90.49 Acquired absence of other specified parts of digestive tract; Z90.710 Acquired absence of both cervix and uterus
CPT/HCPCS: 36415; 49321; 49322; 85027; 86850; 86900; 86901; 88108; 88305; 88307; 88341; 88342; 88360; J0690; J1170; J2060; J2765; J3490; J7120

== ENCOUNTER 2020-12-04 12:05 | Day surgery (SDC) | payer MEDICARE, OTHER ==
[2020-12-04] MEDS ORDERED: LACTATED RINGERS 1,000 ML IV ONE (12:50)
[2020-12-04] MEDS ORDERED: ONDANSETRON 4 MG/2 ML VIAL ONE (13:01)
[2020-12-04] MEDS ORDERED: LIDOCAINE MPF 2%-EPI 1:200000 20 ML VIAL ONE (13:30)
[2020-12-04] MEDS ORDERED: BUPIVACAINE 0.5% PF 10 ML VIAL ONE (13:30)
[2020-12-04] MEDS ORDERED: BUPIVACAINE 0.5% PF 30 ML VIAL SUBQ ONE (13:42)
[2020-12-04] MEDS ORDERED: LIDOCAINE 2%-EPI 1:100000 20 ML MDV SUBQ ONE (13:43)
--- NOTE | 2020-12-04 14:13 | ANESTHESIA ---
Pre-Anesthesia VS, & Labs - Diagnosis lymphoma - Procedure Portacath placement Vital Signs: Temp Pulse Resp BP Pulse Ox 36.2 C L 85 20 154/54 H 100 12/04/20 12:18 12/04/20 12:18 12/04/20 12:18 12/04/20 12:18 12/04/20 12:18 Height: 5 ft 4 in Weight (kg): 72.8 kg Body Mass Index: 27.5 BMI Classification: Overweight - NPO >8 hours - Is Patient ?: No - Lab Results Lab results reviewed: Yes Home Medications and Allergies Home Medications: Ambulatory Orders Loperamide [Imodium] 1 tab PO PRN PRN 12/04/20 Levothyroxine [Synthroid] 88 mcg PO DAILY 03/13/19 allopurinoL [Allopurinol] 300 mg PO DAILY 11/18/20 Loperamide [Imodium] 1 tab PO PRN PRN 12/04/20 Allergies/Adverse Reactions: Allergies Allergy/AdvReac Type Severity Reaction Status Date / Time bupropion [From Wellbutrin] Allergy Severe Anaphylaxis Verified 12/04/20 12:35 lidocaine Allergy Severe Anaphylaxis Verified 12/04/20 12:35 adhesive tape AdvReac Intermediate Skin Verified 12/04/20 12:35 irritation Anes History & Medical History - Anesthetic History Anesthesia Complications: reports: No previous complications Family history of Anesthesia Complications: Denies Family history of Malignant Hyperthermia: Denies - Medical History Cardiovascular: reports: None Pulmonary: reports: None Gastrointestinal: reports: Other (ascities) Urinary: reports: None Musculoskeletal: reports: None Endocrine/Autoimmune: reports: HyPOthyroidism Blood Disorders: reports: Anemia Skin: reports: None Smoking Status: Former smoker - Surgical History General: reports: Appendectomy, Other Gynecologic: reports: Hysterectomy, Breast reduction Exam General: Alert, Oriented x3, Cooperative, No acute distress Dental: WNL Mouth Openin Fingerbreadth Neck Mobility: Normal Mallampati classification: II Plan Anesthesia Type: General, Total IV Consent for Procedure(s) Verified and Reviewed: Yes Code Status: Attempt Resuscitation ASA classification: 3-Severe systemic disease Is this case an emergency?: No
[2020-12-04] MEDS ORDERED: NALOXONE 0.4 MG/ML VIAL IVP PRN (14:14)
[2020-12-04] MEDS ORDERED: ePHEDrine 50 MG/ML VIAL IVP PRN (14:14)
[2020-12-04] MEDS ORDERED: MORPHINE 2 MG/ML CARPUJECT IVP PRN (14:14)
[2020-12-04] MEDS ORDERED: ATROPINE ABBOJECT 1 MG/10 ML SYRINGE IVP PRN (14:14)
[2020-12-04] MEDS ORDERED: HYDROmorphone 0.5 MG/0.5 ML SYRINGE IVP PRN (14:14)
[2020-12-04] MEDS ORDERED: ONDANSETRON 4 MG/2 ML VIAL IVP PRN (14:14)
[2020-12-04] MEDS ORDERED: METOCLOPRAMIDE 10 MG/2 ML VIAL IVP PRN (14:14)
[2020-12-04] MEDS ORDERED: PROPOFOL 500 MG/50 ML 500 MG/50 ML VIAL ONE (14:16)
[2020-12-04] MEDS ORDERED: SCOPOLAMINE PATCH TOP ONE (14:17)
[2020-12-04] MEDS ORDERED: MIDAZOLAM 2 MG/2 ML VIAL ONE (14:19)
[2020-12-04] MEDS ORDERED: PROPOFOL 200 MG/20 ML VIAL IVP ONE (14:20)
[2020-12-04] MEDS ORDERED: DEXAMETHASONE 4 MG/ML VIAL ONE (14:33)
[2020-12-04] MEDS ORDERED: fentaNYL 100 MCG/2 ML VIAL ONE ×2 (14:36→15:20)
--- NOTE | 2020-12-04 14:55 | OPERATIVE REPORT ---
Operative Report - General Procedure Date: 12/04/20 Planned Procedure: Left Dswxut-n-Ofio placement Pre-Op Diagnosis: B-cell lymphoma Procedure Performed: Left Lcpdgz-h-Kqje placement Post Op Diagnosis: B-cell lymphoma - Procedure Note Primary Surgeon: Luz Elena Anesthesia Provider: DAMASO Toney Anesthesia Technique: General LMA Pathology: None Estimated Blood Loss (mL): 5 Indications: B cell lymphoma Findings: Port in good position in the superior vena cava Complications: None apparent - Other Other Information/Narrative: After obtaining informed consent, the patient is brought to the operating room and placed in supine position on the operating table. Following successful induction of sedation with monitored anesthesia care and appropriate padding of all bony prominences, the left chest and neck were prepped and draped in the standard surgical fashion. A timeout was held per scope protocol. All elements of the surgical safety checklist were followed before, during, and after the procedure. Following infiltration with local anesthetic to create a field block, the left subclavian vein was accessed in the deltopectoral groove. The J-wire was gently placed into the vein. Fluoroscopy was used to confirm the position of the wire and in the subclavian vein. We anesthetized the existing healed scar in the area around it for placement of the port itself. An incision was created here and carried down through the skin and subcutaneous tissue. A pocket was created with blunt dissection. The port tubing was attached to the tunneling device and passed from the access site of the vein into the pocket. It was trimmed to an appropriate length and the port attached. The port was sewn into place in the pocket. The dilator and introducer were then passed over the J-wire that was in the subclavian vein. The J-wire and dilator were removed leaving only the introducer. The tubing was then passed through the introducer and the introduce r cracked and removed per survey data technician's directions. The port was then checked for function and flushed and chema easily. Additional local anesthetic was applied to the chest wall. The port pocket was closed with interrupted Vicryl sutures and Monocryl stitches were placed in both skin incision sites. All sponge, needle, and instrument counts were correct at the conclusion of the case. Chest x-ray in the postanesthesia care unit revealed the port in good position in the superior vena cava without evidence of pneumothorax.
[2020-12-04] MEDS ORDERED: SCOPOLAMINE PATCH TOP SCH (15:00)
[2020-12-04] MEDS ORDERED: LACTATED RINGERS 1,000 ML IV SCH (15:00)
[2020-12-04] MEDS ORDERED: LACTATED RINGERS 500 ML IV ONE (15:02)
[2020-12-04] MEDS: fentaNYL 100 MCG/2 ML VIAL IVP PRN ×2 (15:12→15:25)
--- NOTE | 2020-12-04 15:22 | XRAY Report ---
PROCEDURE: Chest for Line Placement INDICATIONS: port TECHNIQUE: One view of the chest was acquired. COMPARISON: None FINDINGS: Surgical changes and devices: Left-sided port is present with distal tip projecting over the mid/dist al SVC. Poor inspiratory effort is present. Lungs and pleura: No pleural effusions or pneumothorax. Lungs are clear. Mediastinum: Mediastinal contours appear normal. Heart size is normal. Bones and chest wall: No suspicious bony lesions. Overlying soft tissues appear unremarkable. IMPRESSION: Port placement as above. Exam is limited secondary to poor inspiratory effort. No gross consolidations, effusions or pneumotho rax. Reviewed by: Joseline Lo MD on 12/04/2020 3:20 PM PDT Approved by: Joseline Lo MD on 12/04/2020 3:20 PM PDT Station ID: [id number]
[2020-12-04 16:02] VITALS: BP 133/56
--- NOTE | 2020-12-04 16:21 | XRAY Report ---
PROCEDURE: OR Port-A-Cath INDICATIONS: PORT PLACEMENT TECHNIQUE: Single fluoroscopic image was acquired. COMPARISON: None. FINDINGS: Single fluoroscopic image demonstrates what appears to be a wire overlying the right chest. It is ove rlying the right atrial/IVC junction. IMPRESSION: Limited evaluation of port placement as above. Reviewed by: Joseline Lo MD on 12/04/2020 4:20 PM PDT Approved by: Joseline Lo MD on 12/04/2020 4:20 PM PDT Station ID: [id number]
--- NOTE | 2020-12-04 17:55 | ANESTHESIA POST OP EVALUATION ---
Anesthesia Post Eval - Post Anesthesia Eval Vitals: Last Vital Signs Temp 36.3 C L 12/04/20 16:00 Pulse 82 12/04/20 16:00 Resp 18 12/04/20 16:00 BP 133/56 H 12/04/20 16:00 Pulse Ox 100 12/04/20 16:00 CV Function Including HR & BP: Stable Pain Control: Satisfactory Nausea & Vomiting: Negative Mental Status: Baseline Respiratory Status: Airway Patent Hydration Status: Satisfactory Anesthesia Complications: None
== END 2020-12-04 12:06 | disposition home or self-care (01) ==
LOC: SDS 12:05
PROVIDERS: ATTEND Surgery
DX: C85.10 Unspecified B-cell lymphoma, unspecified site (principal); E03.9 Hypothyroidism, unspecified; Z87.891 Personal history of nicotine dependence
CPT/HCPCS: 36561; 71045; C1788; J3490; J7120

== ENCOUNTER 2020-12-08 18:21 | Emergency (ER) | payer MEDICARE, OTHER ==
[2020-12-08 18:29] VITALS: BP 158/64
[2020-12-08] MEDS ORDERED: FUROSEMIDE 20 MG TABLET PO STA (18:58)
--- NOTE | 2020-12-08 19:02 | ED Physician Documentation ---
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 She is scheduled to have a paracentesis in 3 days. She states that the [facility] told her to come in to the emergency department if she felt her abdomen was more distended. She is not having any difficulty breathing. Ambulating without difficulty and able to lay flat. Her abdomen does feel tight. She has had 1 paracentesis in the past. No fevers. No chills. No nausea or vomiting. Not on any diuretics currently. 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 - Present Medications Home Medications: Ambulatory Orders Medication Instructions Recorded Confirmed Levothyroxine [Synthroid] 88 mcg PO DAILY 03/13/19 12/04/20 Ondansetron Odt [Zofran] 4 mg TL Q6H PRN #30 tablet 10/07/20 11/25/20 oxyCODONE [Roxicodone] 5 mg PO Q6H PRN #20 tablet 10/19/20 11/25/20 allopurinoL [Allopurinol] 300 mg PO DAILY 11/18/20 11/25/20 oxyCODONE [Roxicodone] 5 mg PO Q6H PRN #30 tablet 11/30/20 Loperamide [Imodium] 1 tab PO PRN PRN 12/04/20 12/04/20 Lidocaine/Prilocain 2.5% Cream 1 each TP 12/07/20 [Emla 2.5% Cream] Furosemide [Lasix] 20 mg PO DAILY #7 tablet 12/08/20 - Allergies Allergies/Adverse Reactions: Allergies Allergy/AdvReac Type Severity Reaction Status Date / Time bupropion [From Wellbutrin] Allergy Severe Anaphylaxis Verified 12/08/20 18:25 lidocaine Allergy Severe Anaphylaxis Verified 12/08/20 18:25 adhesive tape AdvReac Intermediate Skin Verified 12/08/20 18:25 irritation - Social History Does the pt smoke?: No Smoking Status: Never smoker PD ED PE NORMAL - Vitals Vital signs reviewed: Yes - General General: Alert and oriented X 3, No acute distress - HEENT HEENT: Moist mucous membranes - Neck Neck: Supple, no meningeal sign - Cardiac Cardiac: RRR - Respiratory Respiratory: No respiratory distress, Clear bilaterally - Abdomen Abdomen: Normal bowel sounds, Soft, Non tender, Other (Soft distended abdomen.) - Derm Derm: Warm and dry - Extremities Extremities: Other (1+ bilateral lower extremity pitting edema) - Neuro Neuro: Alert and oriented X 3 - Psych Psych: Normal mood, Normal affect Results - Vitals Vitals: Vital Signs - 24 hr 12/08/20 18:25 Temperature 36.5 C Heart Rate 74 Respiratory 16 Rate Blood Pressure 158/64 H O2 Saturation 100 Oxygen O2 Source Room air PD MEDICAL DECISION MAKING - ED course Complexity details: considered differential, d/w patient ED course: Patient is scheduled to have a paracentesis and 2-1/2 days. She is not having any difficulty breathing. Able to lie flat without difficulty. We will start her on a diuretic and have her follow-up as scheduled for her paracentesis. No hypoxia or respiratory distress. No tachypnea. Ambulating without difficulty. No indication for emergent paracentesis. Patient counseled regarding signs and symptoms for which I believe and urgent re-evaluation would be necessary. Patient with good understanding of and agreement to plan and is comfortable going home at this time This document was made in part using voice recognition software. While efforts are made to proofread this document, sound alike and grammatical errors may occur. Departure - Departure Disposition: 01 Home, Self Care Clinical Impression: Marginal zone B-cell lymphoma Ascites Qualifiers: Ascites type: malignant Qualified Code(s): R18.0 - Malignant ascites Condition: Good Instructions: ED Ascites Follow-Up: Toya Yap PA-C [Primary Care Provider] - Within 1 week Prescriptions: Furosemide [Lasix] 20 mg PO DAILY #7 tablet Comments: Your prescription was sent to [facility] in [place]. This will help to decrease the swelling. You have an appointment scheduled on Monday at 1 PM for the paracentesis. Please keep that appointment. Please return if you have difficulty breathing or worsening symptoms. Please follow-up with your doctor next week to recheck your electrolytes including your potassium and to discuss need for ongoing diuretics (water pills) Discharge Date/Time: 12/08/20 19:09
== END 2020-12-08 19:09 | disposition home or self-care (01) ==
LOC: ED 18:21
DX: C85.80 Other specified types of non-Hodgkin lymphoma, unspecified site (principal); R18.0 Malignant ascites
CPT/HCPCS: 99282; 99284; A9270

== ENCOUNTER 2020-12-10 08:29 | Outpatient (CLI) | payer MEDICARE, OTHER ==
--- NOTE | 2020-12-10 16:34 | CONSULTATION NOTE ---
Palliative Care Consultation - Referral Referring Provider: Dr. Shahrzad Boucher Time of Visit: 0830 60 min [place] setting[place] [facility] [place] Reason: Pain of neoplastic origin/Marginal-zone B-cell Lymphoma/massive spenomegaly - Information Sources Records reviewed: Previous records reviewed History/Review of Systems obtained from: Patient, Family (OMAR Putnam) Exam limitations: No limitations - History of Present Illness Brief History of Present Illness: This is a 65-year-old woman who has been diagnosed with marginal zone B-cell lymphoma, has massive splenomegaly, and severe ascites pending paracentesis tomorrow. She has had 1 treatment of her bendamustine/rituximab. She had her port placement as well as a paracentesis last Monday where they reportedly removed 2 liters. She does have some increased lower extremity edema, and presents with moderate to severe pain, related to abdominal distention, pressure on her back, right upper quadrant discomfort, and the splenomegaly pressure is distressing as well. She had presented to the ED on 12/08 but was in no distress, without shortness of breath, no hypoxia, and was still ambulatory. They advised her to wait till her paracentesis on Monday. Patient originally been diagnosed with pancytopenia of unknown etiology, she has had 10 months of ongoing diarrhea, and otherwise has been fairly healthy only treated for hypothyroidism. 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 They were able to get an excisional biopsy of the cervical node. There is thought that she has extranodal involvement in the colon, and has been started on treatment. Patient has been using oxycodone for 5 mg every 4-6 hours, unfortunately she has not been prescribed large amount, so has been using it sparingly. Her pain she rates at 8 out of 10, has some mild shortness of breath, is using Imodium intermittently for diarrhea, but does present with high anxiety particularly in the context of wondering about her overall prognosis and her worsening abdominal pain and status. 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 Support System: Patient lives at home with her , they have been 49 years. She is a hairdresser, continues to work about 2 times a week, it is difficult with her standing. [id number] who have been very supportive. Her mother is still alive, who is being treated for renal cancer whom she supports as well. Family History - Family History Family History: Mother: Alive and Well (gliobalstoma and bladder ca age 67), Cancer (is 91 with renal cancer), Father: (pancreatic cancer age 64), Cancer, Sister: Alive and Well Medications/Allergies - Medications Home Medications: Ambulatory Orders Medication Instructions Recorded Confirmed Levothyroxine [Synthroid] 88 mcg PO DAILY 03/13/19 12/10/20 Ondansetron Odt [Zofran] 4 mg TL Q6H PRN #30 tablet 10/07/20 12/10/20 allopurinoL [Allopurinol] 300 mg PO DAILY 11/18/20 12/10/20 Loperamide [Imodium] 1 tab PO PRN PRN 12/04/20 12/10/20 Lidocaine/Prilocain 2.5% Cream 1 each TP PRN PRN 12/07/20 12/10/20 [Emla 2.5% Cream] Furosemide [Lasix] 20 mg PO DAILY #7 tablet MDD hold 12/08/20 12/10/2012/11 Alprazolam [Xanax] 0.25 mg PO BID PRN 12/10/20 12/10/20 oxyCODONE [Roxicodone] 5 - 10 mg PO Q4HR PRN MDD 10 12/10/20 12/10/20 - Allergies Allergies/Adverse Reactions: Allergies Allergy/AdvReac Type Severity Reaction Status Date / Time bupropion [From Wellbutrin] Allergy Severe Anaphylaxis Verified 12/08/20 18:25 lidocaine Allergy Severe Anaphylaxis Verified 12/08/20 18:25 adhesive tape AdvReac Intermediate Skin Verified 12/08/20 18:25 irritation Review of Systems - Constitutional Constitutional: reports: Fatigue (worsening), Weakness, Weight gain (but with temporal wasting/UE wasting) - Eyes Eyes: reports: Vision loss, Corrective lenses - Cardiovascular Cardiovascular: reports: Exertional dyspnea, Decr. exercise tolerance - Respiratory Respiratory: reports: SOB with exertion. denies: SOB at rest - Gastrointestinal Gastrointestinal: reports: Abdominal distention, Diarrhea (slowing down; using one immodium daily), Bloating, Early satiety. denies: Nausea, Reflux/heartburn - Musculoskeletal Musculoskeletal: reports: Back pain, Stiffness, Muscle weakness - Integumentary Integumentary: reports: Dryness - Neurological Neurological: reports: General weakness - Psychiatric Psychiatric: reports: Anxiety - Endocrine Endocrine: reports: Hypothyroidism - Hematologic/Lymphatic Hematologic/Lymph: reports: Anemia (11.1) - All Other Systems All Other Systems: reports: Reviewed and negative Physical Exam - Vital Signs Pulse Rate: 83 Respiratory Rate: 18 O2 Saturation: 94 Blood Pressure: 140/63 - Physical Exam General Appearance: positive: Alert, Mild distress (related to pain), Anxious Eyes Bilateral: positive: Normal inspection, No scleral icterus ENT: positive: No signs of dehydration Neck: positive: Trachea midline Cardiovascular: positive: Regular rate & rhythm Respiratory: positive: No respiratory distress, Diminished in bases Abdomen: positive: Distended, Bruit (Splenomegaly), Obese, Other Skin: positive: Dryness Extremities: positive: Pedal edema (1+ taut pedal edema up through thighs) Neurologic/Psychiatric: positive: Oriented x3, Mood/affect nml, Weakness Palliative Care - POLST Patient has POLST: No POLST Status: Full Code Pain: Pain worsening, Location (see HPI), Severity (10/13) Tiredness/Fatigue: Moderate (4-6) Drowsiness/Sedation: None Nausea: Mild (1-3) (3rd day after chemo) Anorexia: None Dyspnea: Mild (1-3) Depression: None Anxiety: Moderate (4-6) Feelings of wellbeing/Perceived Quality of Life: Fair, Worsening Sleep: Sleeps well Performance Status: Patient's activity tolerance is limited by her large abdomen, breathlessness, and fatigue and pain. She is able to manage her ADLs, she is ambulatory though does find it more cumbersome. She does have difficulty standing for long periods of time, but is still trying to work a couple days a week. - Palliative Care Discussion: Patient very reflective of long-term coming to this final diagnosis, wondering the implications regarding long-term particular around prognosis and expectations of outcomes of treatment. She is hoping for both quantity and quality of life, short-term goals are to address her pain, initiate treatment and evaluate response, will continue to develop rapport and develop goals regarding long-term goals with consult with oncology regarding prognostic expectations. Results - Lab Results Lab results reviewed: Yes Impression and Recommendations - Palliative Care Impression: This is a tello 65-year-old woman with high symptom burden secondary to marginal Zone B-cell lymphoma, massive splenomegaly, and recurrent ascites. Patient with poorly controlled pain, fatigue, is starting bendamustine/Rituxan. Patient presents with appropriate anxiety given situation. Palliative care meeting with patient to establish rapport, counseling and prescriptions for pain medication, and anticipatory guidance. Recommendations/Counseling Done: 1. Pain of neoplastic origin. Patient's pain is multifactorial, including abdominal pressure from splenomegaly, ascites discomfort, and describing right upper quadrant pain most likely mass-effect. Patient has been using oxycodone 5 mg intermittently with some relief, patient would benefit from sustained release medication but is somewhat resistant and anxious at this first visit. We will go ahead and prescribe oxycodone 5 mg tabs instructed to use 1-2 tabs every 3-4 hours [id number], and log accordingly. Introduced principles of long- acting pain medication versus short acting, will await also to see her pain levels with paracentesis tomorrow. Goal is of course for decreased abdominal pressure with response to treatment, will titrate up slowly with expectation pain may improve with treatment. 2. Diarrhea. This most likely is related to her lymphoma, she does use intermittent Imodium. We did discuss in the context of increasing opioids, may induce opioid-induced constipation. Did request she get some senna just in case. 3. Ascites with lower extremity edema. When seen at the emergency room, they did start her on some furosemide 20 mg daily, did help a little with her leg swelling, and concerned given her high risk for dehydration, is getting tapped tomorrow. Will follow up with oncology JEROME, suspect should leave it as as needed dosing or discontinue. Given she is being tapped tomorrow, instructed her not to take her furosemide. Concern regarding fluid shifts. 4. Anxiety. Patient appropriately with fluctuating anxiety, more attributed to the situation. She does though have underlying mild anxiety disorder. Given the context for current situation, will provide her alprazolam 0.25 mg 1 tab twice daily as needed to have in her "toolbox". Patient verbalizes understanding. Counseling provided regarding normalizing response to her current situation, and concern for pending outcome of treatment and more information in the context of prognosis. 5. Advanced care planning. Patient introduced to the role of palliative care as an extra layer of support and to provide focus on quality of life with adjusting pain and symptom management, and Anticipatory guidance.. Meeting today to address setting of rapport and acute pain management needs. We will continue to explore patient's short and long-term goals, will reach out to oncology regarding prognosis for better ACP. 60 minutes with review of charts, scans, labs, [id number] with patient for instruction on pain and symptom management and setting of rapport.
== END 2020-12-10 08:30 | disposition home or self-care (01) ==
LOC: PC 08:29
PROVIDERS: ATTEND Nurse Practitioner Adult Health
DX: Z51.5 Encounter for palliative care (principal); G89.3 Neoplasm related pain (acute) (chronic); C85.10 Unspecified B-cell lymphoma, unspecified site; R16.1 Splenomegaly, not elsewhere classified; R18.8 Other ascites; R19.7 Diarrhea, unspecified; F41.9 Anxiety disorder, unspecified; D61.818 Other pancytopenia; Z79.899 Other long term (current) drug therapy
CPT/HCPCS: 99205

== ENCOUNTER 2020-12-11 12:46 | Outpatient (CLI) | payer MEDICARE, OTHER ==
[2020-12-11] MEDS ORDERED: BUPIVACAINE 0.5% PF 10 ML VIAL ONE (12:56)
--- NOTE | 2020-12-11 15:32 | Ultrasound Report ---
PROCEDURE: Duplex Ext Veins Left INDICATIONS: LEFT LEG SWELLING TECHNIQUE: Real-time imaging, as well as color and pulse Doppler interrogation, were performed of the lower extr emity deep veins from the inguinal ligament to the popliteal fossa. COMPARISON: None. FINDINGS: The deep veins are normally compressible, and free of intraluminal thrombus. Color and pu lse Doppler demonstrate normal phasic intraluminal flow. There is normal augmentation response to di stal compression maneuver. IMPRESSION: No sonographic evidence of DVT. Reviewed by: Antoine Loza MD on 12/11/2020 3:30 PM PDT Approved by: Antoine Loza MD on 12/11/2020 3:30 PM PDT Station ID: [id number]
[2020-12-11] MEDS ORDERED: BUPIVACAINE 0.5% PF 10 ML VIAL IM ONE (16:48)
--- NOTE | 2020-12-12 08:49 | Ultrasound Report ---
PROCEDURE: Abdominal Paracentesis INDICATIONS: LYMPHOMA, ASCITES TECHNIQUE: The indications, alternatives, benefits, risks, and complications of the procedure were explained to the patient. Written informed consent was obtained and placed in the chart. The abdomen and pelvis were examined sonographically, and an appropriate site was chosen for paracentesis. The skin was pre pared and draped in the usual sterile fashion, and 1% lidocaine was infiltrated from the skin down th rough the peritoneal surface. A 19-gauge catheter-covered needle was then introduced into the perito aamir space, the catheter was advanced and the needle was withdrawn, and thereafter peritoneal fluid w as withdrawn. The catheter was then removed and a dressing was applied. The fluid was discarded if the clinician did not order diagnostic testing of the fluid. COMPARISON: None FINDINGS: Access site: Left lower quadrant Needle: One-Step centesis catheter with introducer needle. Fluid volume and description: 4.9 L clear yellow Fluid sent for diagnostic testing: Yes Medications: 1% lidocaine for local anaesthesia. Complications: None. IMPRESSION: Successful ultrasound-guided paracentesis. Reviewed by: Joseline Lo MD on 12/12/2020 8:48 AM PDT Approved by: Joseline Lo MD on 12/12/2020 8:48 AM PDT Station ID: [id number]
== END 2020-12-11 12:47 | disposition home or self-care (01) ==
LOC: DI 12:46
PROVIDERS: ATTEND Internal Medicine Hematology & Oncology
DX: C85.90 Non-Hodgkin lymphoma, unspecified, unspecified site (principal); R18.8 Other ascites; R22.42 Localized swelling, mass and lump, left lower limb
CPT/HCPCS: 49083

== ENCOUNTER 2020-12-22 13:09 | Outpatient (CLI) | payer MEDICARE, OTHER ==
--- NOTE | 2020-12-22 15:12 | CONSULTATION NOTE ---
Palliative Care Follow Up - Referral Referring Provider: Dr. Shahrzad Vargas Time of Visit: [id number] Referral setting: [facility] [place] Referral Reason: Pain of neoplastic origin/Marginal zone B-Cell lymphoma/anxiety - Information Sources Records reviewed: Previous records reviewed History/Review of Systems obtained from: Patient Exam limitations: No limitations - History of Present Illness Update Brief HPI Update: This is a 65-year-old woman who has been diagnosed with marginal zone B-cell lymphoma, has massive splenomegaly, and severe ascites with recent paracentesis on 12/12 with removal of 4.9 L of clear yellow fluid. Unfortunately she is already reaccumulated, she is not as uncomfortable, but is quite taut and large. She reports that her weight has been as low as 143 after paracentesis, but now is up around 162. She does present with a feeling of tightness, pain is mixed but does become more uncomfortable through the day, is quite persistent. She is taking around 8 tabs of oxycodone 5 mg daily, in response to her fluctuating pain. She does get up in the middle the night and take a dose of pain medication, after much conversation she is interested in looking at a long-acting pain medication. We have agreed on fentanyl, given pill burden, worried about absorption, and for ease of care. Patient is feeling somewhat overwhelmed, given this the length of time it has taken for her before she got her first treatment, almost 8 months. 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 It does get somewhat uncomfortable, but she does find this is a good distraction. She reports her diarrhea is currently controlled, given her narcotic use is not needed anything for constipation. She is feeling somewhat overwhelmed difficulty tracking currently what is going on, feels like the oncologist is to steps ahead, and is trying to come to some understanding regarding the seriousness of her illness. She does understand its not "curable" but can be managed, and will have a interval scan after cycle 3, may be able to better gauge prognosis. Past Medical History: Hypothyroidism, chronic diarrhea, anxiety, gastric lap band, hysterectomy, breast reduction, appendectomy. Social History - Living Situation Living arrangement: At home Living Situation: With spouse/s.o. Support System: Patient is at home with her , they have been 49 years. [place] 1 [place] and [id number] Indy have been very supportive. Her mother is still alive who is being treated for renal cancer, has been di fficult for her not to be more involved in her care. Medications/Allergies - Medications Home Medications: Ambulatory Orders Medication Instructions Recorded Confirmed Levothyroxine [Synthroid] 88 mcg PO DAILY 03/13/19 12/22/20 Ondansetron Odt [Zofran] 4 mg TL Q6H PRN #30 tablet 10/07/20 12/22/20 allopurinoL [Allopurinol] 300 mg PO DAILY 11/18/20 12/22/20 Loperamide [Imodium] 1 tab PO PRN PRN 12/04/20 12/22/20 Lidocaine/Prilocain 2.5% Cream 1 each TP PRN PRN 12/07/20 12/22/20 [Emla 2.5% Cream] Alprazolam [Xanax] 0.25 mg PO BID PRN 12/10/20 12/22/20 oxyCODONE [Roxicodone] 5 - 10 mg PO Q4HR PRN MDD 10 12/10/20 12/22/20 Naloxone HCl [Narcan] 4 mg ALICE ONCE PRN 12/22/20 12/22/20 fentaNYL 12 MCG PATCH [Duragesic 12 mcg TOP .Q72 HOURS 12/22/20 12/22/20 12mcg patch] - Allergies Allergies/Adverse Reactions: Allergies Allergy/AdvReac Type Severity Reaction Status Date / Time bupropion [From Wellbutrin] Allergy Severe Anaphylaxis Verified 12/08/20 18:25 lidocaine Allergy Severe Anaphylaxis Verified 12/08/20 18:25 adhesive tape AdvReac Intermediate Skin Verified 12/08/20 18:25 irritation Review of Systems - Constitutional Constitutional: reports: Fatigue, Weakness, Weight gain. denies: Fever - Eyes Eyes: reports: Vision loss - Ears, Nose & Throat Ears, Nose & Throat: reports: Dry mouth - Cardiovascular Cardiovascular: reports: Decr. exercise tolerance - Respiratory Respiratory: reports: SOB with exertion. denies: SOB at rest - Gastrointestinal Gastrointestinal: reports: Abdominal pain, Abdominal distention, Nausea (controlled with ondansetron), Early satiety. denies: Diarrhea (improved with opioid use), Vomiting (dry heaves at times) - Genitourinary Genitourinary: reports: Frequency - Musculoskeletal Musculoskeletal: reports: Stiffness, Muscle weakness - Integumentary Integumentary: reports: Dryness - Neurological Neurological: reports: General weakness, Abnormal gait - Psychiatric Psychiatric: reports: Anxiety - Endocrine Endocrine: reports: Hypothyroidism - Hematologic/Lymphatic Hematologic/Lymph: reports: Anemia (9.6) - All Other Systems All Other Systems: reports: Reviewed and negative Physical Exam - Physical Exam General Appearance: positive: No acute distress Eyes Bilateral: positive: No scleral icterus ENT: positive: No signs of dehydration Neck: positive: Trachea midline Respiratory: negative: No respiratory distress (RR effort with ambulation) Abdomen: positive: Non-tender, Nml bowel sounds, Distended, Taut Skin: positive: Pallor, Dryness Extremities: positive: Pedal edema (up to thigh/sacral area) Neurologic/Psychiatric: positive: Oriented x3, Mood/affect nml, Flat affect Palliative Care - POLST Patient has POLST: No Pain: Pain worsening, Location (abdomen and top of thighs), Severity (6-8/10) Tiredness/Fatigue: Mild (1-3) Drowsiness/Sedation: None Nausea: Moderate (4-6) Anorexia: Moderate (4-6) Dyspnea: Mild (1-3) Depression: None Anxiety: Mild (1-3) Feelings of wellbeing/Perceived Quality of Life: Fair, Worsening Sleep: Variable sleep pattern Constipation: No Performance Status: Patient is ambulatory, has walked up to 3 miles a day. Was encouraged not to do this, from oncology, will follow up regarding this. Patient is independent in her ADLs, is having some increased difficulty with lower extremity dressing. Patient's gait is awkward because of her massive ascites/splenomegaly. - Palliative Care Discussion: Patient is feeling somewhat overwhelmed, she does admit that how she best beckie is "being in control". This has been very difficult for her overall including asking for help and support. Did explore if patient has done any end-of-life planning, given the severity of her illness she is aware she needs to address this, but is not feeling any urgency. He did discuss in the context of cancer treatment, concerns for crisis and sequela from side effects as well as cancer. Patient sharing complexities of changing body image, need to reach out and ask for more support, does feel like she has supportive friends and family.We will continue explore advanced care planning topics with patient as anxiety allows Results - Lab Results Lab results reviewed: Yes Impression and Recommendations - Palliative Care Impression: This is a tello 65-year-old woman with high symptom burden secondary to marginal zone B-cell lymphoma, massive splenomegaly, and recurrent ascites. Patient has started bendamustine/Rituxan. Patient presents with appropriate anxiety given the situation, and persistent and only moderately controlled pain. Palliative care meeting with patient establish rapport, counseling provided and prescriptions for pain medication, and anticipatory guidance Recommendations/Counseling Done: 1. Pain of neoplastic origin. Patient's pain is multifactorial, including abdominal pressure from splenomegaly, ascites discomfort, and describing right upper quadrant pain most likely mass-effect. Patient has been using increased oxycodone, but has been consistent about using [id number] with better pain control. She does have escalating pain at times with increased standing and activity, counseling has been provided regarding recommendations for long-acting pain medication. After much conversation, agreement was to transition to fe ntanyl 12 mcg patch, though this is probably about 50% of what she is taking currently of equal analgesic. Patient is quite worried about oversedation and overmedication, she will track her oxycodone so able to titrate accordingly after 1-2 patch changes. Patient had not received previously a prescription for Narcan, reviewed this is expectation of her standard of care and safety. 2. Diarrhea. This is most likely related to her lymphoma, she does use intermittent Imodium. She has had less issues with initiation of opioids. She has not he take anything for diabetes Beatties. 3. Ascites with lower extremity edema. She is not taking furosemide, she has had a tap on 12/11, without much relief and fairly quick we accumulation. So far has been tolerating fluid shifts and paracentesis. 4. Anxiety. Patient appropriate with fluctuating anxiety, does have alprazolam available if needed. Counseling provided regarding normalizing response her current situation, she does understand her treatment is palliative in nature, though her disease has not been defined as aggressive. 5. Advanced care planning. Explored patient's understanding of her illness, looking advanced care planning, recommended putting some of her plans in place, Recommended review financial and legal documents to make sure nothing needs to be updated. Introduced the concept of advanced care planning, will continue to explore as patient treatment plan and response better defined. 45 minutes with review of labs, oncology notes, DI. [id number] with instructions regarding pain and symptom management, introduction of fentanyl patch, and Narcan spray for safety
== END 2020-12-22 13:10 | disposition home or self-care (01) ==
LOC: PC 13:09
PROVIDERS: ATTEND Nurse Practitioner Adult Health
DX: Z51.5 Encounter for palliative care (principal); G89.3 Neoplasm related pain (acute) (chronic); C85.11 Unspecified B-cell lymphoma, lymph nodes of head, face, and neck; R16.1 Splenomegaly, not elsewhere classified; R18.8 Other ascites; R19.7 Diarrhea, unspecified; F41.9 Anxiety disorder, unspecified; E03.9 Hypothyroidism, unspecified; Z98.84 Bariatric surgery status; R35.0 Frequency of micturition; R53.1 Weakness; R26.9 Unspecified abnormalities of gait and mobility
CPT/HCPCS: 99215

== ENCOUNTER 2020-12-29 07:17 | Outpatient (CLI) | payer MEDICARE, OTHER ==
--- NOTE | 2020-12-31 13:16 | Ultrasound Report ---
PROCEDURE: Abdomen Complete INDICATIONS: NON-HODGKIN LYMPHOMA TECHNIQUE: Real-time scanning was performed of the abdominal and retroperitoneal organs, with image documentatio n. COMPARISON: None. FINDINGS: Liver: Liver is normal in size. Increased liver parenchymal echotexture is seen, no discrete hepatic lesion. Prominent size of main portal vein is seen measures 1.8 cm in diameter. Normal hepatopedal fl ow is seen in main portal vein. Gallbladder: Multiple stones and sludge material are seen in dependent portion of gallbladder lumen. A 1.25 cm stone is noted in neck of gallbladder. No gallbladder wall thickening or pericholecystic fl uid. No sonographic Cash's sign. Biliary ducts: Intrahepatic bile ducts are non-dilated. Extrahepatic bile duct caliber measures 6.3 mm. Normal is 6-7 mm or less in diameter, or 10 mm or less post-cholecystectomy. Pancreas: Visualized portions of the pancreas are sonographically normal. Spleen: Spleen is enlarged and measures 20.6 cm in length. No discrete splenic lesion is seen. Kidneys: Kidneys are normal in size and echotexture. Right kidney measures 10.2 cm long; left kidne y measures 8.6 cm long. No hydronephrosis or nephrolithiasis. No solid masses. Aorta: Visualized aorta is normal in caliber at less than 3 cm. Iliacs: Not well seen IVC: Intrahepatic inferior vena cava is patent. Miscellaneous: Moderate ascites fluid is noted in all 4 quadrants of abdomen. IMPRESSION: 1. Hepatic steatosis, no discrete hepatic lesion. Normal hepatoportal flow is seen in mildly prominen t main portal vein. 2. Cholelithiasis without sonographic evidence of acute cholecystitis. No gross biliary ductal dilata tion. 3. Splenomegaly, no discrete splenic lesion. 4. Moderate amount of ascites fluid. Reviewed by: Cory Cortez MD on 12/31/2020 1:15 PM PDT Approved by: Cory Cortez MD on 12/31/2020 1:15 PM PDT Station ID: [id number]
== END 2020-12-29 07:18 | disposition home or self-care (01) ==
LOC: DI 07:17
PROVIDERS: ATTEND Internal Medicine Hematology & Oncology
DX: C85.90 Non-Hodgkin lymphoma, unspecified, unspecified site (principal); R18.8 Other ascites; K76.0 Fatty (change of) liver, not elsewhere classified; K80.20 Calculus of gallbladder without cholecystitis without obstruction; R16.1 Splenomegaly, not elsewhere classified

== ENCOUNTER 2021-01-11 09:30 | Outpatient (CLI) | payer MEDICARE, OTHER ==
--- NOTE | 2021-01-11 15:15 | CONSULTATION NOTE ---
Palliative Care Follow Up - Referral Referring Provider: Dr. Shahrzad Vargas Time of Visit: 0930 60 min Referral setting: [facility] [place] Referral Reason: Pain of neoplastic origin/Marginal-zone B-cell Lymphoma/Severe ascites/sple - Information Sources Records reviewed: RN notes reviewed, Previous records reviewed History/Review of Systems obtained from: Patient, Family (DIL) Exam limitations: No limitations - History of Present Illness Update Brief HPI Update: This is a tello 65-year-old woman with marginal zone B-cell lymphoma, massive splenomegaly, worsening ascites, and lower extremity edema. Patient does have low-grade discomfort, with feeling of tightness, pain, remains quite persistent. Is taking oxycodone 10 mg at least 4 times a day, in response to her fluctuating pain. We did trial fentanyl 12 mcg patch, and she found herself too sedated, unclear if she is not absorbing oral pain medication, or had adverse reaction to the fentanyl. We did discuss again the need for a long-acting medication, she is willing to trial the morphine currently. Patient is quite tearful, she is feeling overwhelmed with her worsening status. She does have a pending PET scan, as well as another therapeutic paracentesis also for diagnostics, these are to be done at [facility]. She is feeling somewhat out of control, which is very understandable given her current condition. She is wanting to have more clear idea of what to expect, but is feeling like her understanding from oncology is that it is still quite poorly d efined. They are hoping with increased information will better be able to provide this information. Patient does present with significant abdominal ascites, lower extremity edema, had started furosemide 20 mg daily. She has had very little response to this, suspect most likely related to impaired venous return with her massive ascites. She is having increased shortness of breath, intermittent hiccups. She reports she is eating well though, and still continues to try and work to be able to be somewhat "normal.". She is though with escalating anxiety, reports several meltdowns over the weekend. Past Medical History: Hypothyroidism, chronic diarrhea, anxiety, gastric lap band, hysterectomy, breast reduction, appendectomy Social History - Living Situation Living arrangement: At home Living Situation: With spouse/s.o. Support System: Patient is at home with her , they have been for 49 years. She [place] 1 [place], and [id number] Indy have been very supportive. Indy is here for appointment and continues to help her navigate. 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 Medications/Allergies - Medications Home Medications: Ambulatory Orders Medication Instructions Recorded Confirmed Levothyroxine [Synthroid] 88 mcg PO DAILY 03/13/19 01/11/21 Ondansetron Odt [Zofran] 4 mg TL Q6H PRN #30 tablet 10/07/20 01/11/21 Loperamide [Imodium] 1 tab PO PRN PRN 12/04/20 01/11/21 Lidocaine/Prilocain 2.5% Cream 1 each TP PRN PRN 12/07/20 01/11/21 [Emla 2.5% Cream] Alprazolam [Xanax] 0.25 mg PO BID PRN 12/10/20 01/11/21 oxyCODONE [Roxicodone] 10 mg PO Q3HR PRN 12/10/20 01/11/21 Naloxone HCl [Narcan] 4 mg ALICE ONCE PRN 12/22/20 01/11/21 Morphine ER [Morphine Sulfate ER] 15 mg PO BID MDD titrating 01/11/21 01/11/21 - Allergies Allergies/Adverse Reactions: Allergies Allergy/AdvReac Type Severity Reaction Status Date / Time bupropion [From Wellbutrin] Allergy Severe Anaphylaxis Verified 12/08/20 18:25 lidocaine Allergy Severe Anaphylaxis Verified 12/08/20 18:25 adhesive tape AdvReac Intermediate Skin Verified 12/08/20 18:25 irritation Review of Systems - Constitutional Constitutional: reports: Fatigue, Weakness, Weight gain. denies: Fever - Eyes Eyes: reports: Vision loss - Ears, Nose & Throat Ears, Nose & Throat: reports: Dry mouth - Cardiovascular Cardiovascular: reports: Decr. exercise tolerance - Respiratory Respiratory: reports: SOB with exertion. denies: SOB at rest - Gastrointestinal Gastrointestinal: reports: Abdominal pain, Abdominal distention, Nausea (controlled with ondansetron), Early satiety. denies: Diarrhea (improved with opioid use), Vomiting (dry heaves at times) - Genitourinary Genitourinary: reports: Frequency - Musculoskeletal Musculoskeletal: reports: Stiffness, Muscle weakness - Integumentary Integumentary: reports: Dryness - Neurological Neurological: reports: General weakness, Abnormal gait - Psychiatric Psychiatric: reports: Anxiety - Endocrine Endocrine: reports: Hypothyroidism - Hematologic/Lymphatic Hematologic/Lymph: reports: Anemia (9.6) - All Other Systems All Other Systems: reports: Reviewed and negative Physical Exam - Vital Signs Temperature: 37.2 C Pulse Rate: 75 Respiratory Rate: 20 O2 Saturation: 100 Blood Pressure: 124/59 - Physical Exam General Appearance: positive: Alert, Mild distress, Anxious Eyes Bilateral: positive: No scleral icterus ENT: positive: No signs of dehydration Neck: positive: Trachea midline Respiratory: negative: No respiratory distress (increased RR with effort) Abdomen: positive: Non-tender, Nml bowel sounds, Distended, Taut Skin: positive: Pallor, Dryness Extremities: positive: Pedal edema (taut up to thigh/sacral area; started 20 mg lasix with very little improvement so far) Neurologic/Psychiatric: positive: Oriented x3, Mood/affect nml, Weakness, Flat affect Palliative Care - POLST Patient has POLST: No POLST Status: Full Code Pain: Pain worsening, Location (discomfort abdominal; using oxycodone 10 mg every 4 hours while awake) Tiredness/Fatigue: None Drowsiness/Sedation: None Nausea: Mild (1-3) Anorexia: Mild (1-3) Dyspnea: Moderate (4-6) Depression: None Anxiety: Mild (1-3) Feelings of wellbeing/Perceived Quality of Life: Fair, Worsening Sleep: Variable sleep pattern Performance Status: Patient's functional status is impacted by her severe ascites and massive splenomegaly, she is me more difficulty getting from sitting to standing. She does not feel like she has lost any muscle strength, is just maneuvering her large abdomen it causes her the most trouble. - Palliative Care Discussion: Discussion centered today on patient's anxiety regarding continuing to worry about future, does understand the disease is not curable but is wondering more so about a defined prognosis. She does understand they are still doing a work- up, she is getting treatment currently and is hoping for both quality of life and quantity. She very much would also like to have improved management of her severe abdominal distention both from splenomegaly and ascites. She reports she did go "googling" and found very negative information, most likely about poor prognosis particularly if she has liver involvement. She is very scared, but recognizes she just has to wait for final information. She perceives herself as a person who likes to be in control, is feeling overwhelmed and out of control currently. Results - Lab Results Lab results reviewed: Yes Impression and Recommendations - Palliative Care Impression: This is a tello 65-year-old woman with high symptom burden secondary to her marginal zone B-cell lymphoma, massive splenomegaly, and recurrent ascites. Patient has now received 2 doses of bendamustane/Rituxan, expecting the third today. Patient presents with appropriate anxiety given the situation, pain continues to be only moderately controlled. Palliative care continue to meet with patient delisa rapport, counseling provided for pain and symptom management and anticipatory guidance Recommendations/Counseling Done: 1. Pain of neoplastic origin. Patient's pain is multifactorial, including abdominal pressure from splenomegaly, ascites discomfort, and describing right upper quadrant pain most likely mass-effect. Patient has been using oxycodone 10 mg every 3-1/2 to 4 hours, has been consistent with around the clock. She had not tolerated the fentanyl, but is willing to try MS Contin 15 mg at low dose. We will start quite slow given her anxiety, she will start with 15 mg extended release in the a.m. for a couple days, then add second dose. She does understand the equal analgesic we are attempting to meet is 60 mg of morphine equivalent total 2. Fatigue. This is multifactorial, very tired with managing her significant ascites, she does have worsening anemia. She does get short of breath with activity. Patient though very much enjoys working, counseling provided re garding energy conservation and pacing activities. 3. Diarrhea. This is been attributed most likely to her lymphoma, she is needing less intermittent Imodium, she is doing better with initiation of the opioids. 4. Ascites with cysts taut lower extremity edema. She currently was restarted on her furosemide 20 mg, reports this has not been much effect at this point. She does have low potassium at 3.5, counseling provided regarding potassium rich foods. We will continue to monitor. 5. Anxiety. Patient presents with appropriate fluctuating anxiety, does have alprazolam available if needed. Counseling provided regarding normalized response to her current situation, she does feel she had more concrete information she would be able to feel more in control. They are still doing a staging work-up for her. 6. Advanced care planning. Will await further input from tests, continue with advanced care planning documents, but will be helpful to have more prognostic information. 60 minutes with review of labs, oncology notes, [id number] with instructions regarding pain and symptom management, counseling regarding new medication, and new prescriptions provided
== END 2021-01-11 09:31 | disposition home or self-care (01) ==
LOC: PC 09:30
PROVIDERS: ATTEND Nurse Practitioner Adult Health
DX: Z51.5 Encounter for palliative care (principal); G89.3 Neoplasm related pain (acute) (chronic); C85.10 Unspecified B-cell lymphoma, unspecified site; R18.8 Other ascites; R60.0 Localized edema; R16.1 Splenomegaly, not elsewhere classified; F41.9 Anxiety disorder, unspecified; R06.02 Shortness of breath; E03.9 Hypothyroidism, unspecified; K52.9 Noninfective gastroenteritis and colitis, unspecified; R11.0 Nausea; R53.83 Other fatigue; D64.9 Anemia, unspecified
CPT/HCPCS: 99215

== ENCOUNTER 2021-01-26 08:56 | Outpatient (CLI) | payer MEDICARE, OTHER ==
--- NOTE | 2021-01-26 13:44 | Ultrasound Report ---
PROCEDURE: Doppler Complete INDICATIONS: PANCYTOPENIA TECHNIQUE: Real-time scanning was performed of the abdominal and retroperitoneal organs, with image documentatio n. Color and pulse Doppler interrogation was also performed of the hepatic and splenic vessels, or o f the lesion of interest. COMPARISON: Abdominal ultrasound 12/29/2020. CT abdomen/pelvis 08/31/2020. FINDINGS: Liver: Liver is mildly enlarged measuring up to 18 cm in length. No focal liver lesion is seen. Ther e is questionable subtle nodularity of the liver surface. Doppler: Main portal vein is patent, with luminal diameter of 16 mm (normal of 13-16 mm). On pulse Doppler interrogation, portal vein flow direction is hepatopetal. Hepatic artery Doppler waveforms d emonstrate normal systolic upstrokes. Hepatic veins are patent, but demonstrate an abnormal Doppler waveform with decreased phasicity. Gallbladder: Dependent sludge and stones are seen in the gallbladder. There is no significant gallbla dder wall thickening. Biliary ducts: Intrahepatic bile ducts are non-dilated. Extrahepatic bile duct caliber measures 6 m m. Normal is 6-7 mm or less in diameter, or 10 mm or less post-cholecystectomy. Pancreas: Visualized portions of the pancreas are sonographically normal. Spleen: Spleen is enlarged measuring 21.9 x 17.5 x 8.0 cm (1605 mL). The splenic artery and vein are patent. Kidneys: Kidneys are normal in size and echotexture. Right kidney measures 11.3 cm long; left kidne y measures cm long. No hydronephrosis or nephrolithiasis. No solid masses. Miscellaneous: Moderate ascites is seen throughout the abdomen. IMPRESSION: 1.Marked splenomegaly. 2.Mild hepatomegaly with questionable subtle surface nodularity. 3.Patent hepatic veins with abnormal blunted waveform but preserved antegrade flow. 4.Patent portal vein is borderline enlarged. 5.Moderate ascites. 6.Cholelithiasis. Reviewed by: Bobby Godfrey MD on 01/26/2021 1:42 PM PST Approved by: Bobby Godfrey MD on 01/26/2021 1:42 PM PST Station ID: [id number]
== END 2021-01-26 08:57 | disposition home or self-care (01) ==
LOC: DI 08:56
PROVIDERS: ATTEND Internal Medicine Hematology & Oncology
DX: D61.818 Other pancytopenia (principal); C85.11 Unspecified B-cell lymphoma, lymph nodes of head, face, and neck; R16.2 Hepatomegaly with splenomegaly, not elsewhere classified; R18.8 Other ascites; K80.20 Calculus of gallbladder without cholecystitis without obstruction
CPT/HCPCS: 93975

== ENCOUNTER 2021-01-29 13:05 | Outpatient (CLI) | payer MEDICARE, OTHER ==
[2021-01-29 14:22] LABS: INR 1.2 (0.8-1.2); PT - PROTHROMBIN TIME 13.6 secs (9.9-12.6)
[2021-01-29] MEDS ORDERED: BUPIVACAINE 0.5% PF 10 ML VIAL IM ONE (16:21)
--- NOTE | 2021-01-29 16:22 | Ultrasound Report ---
PROCEDURE: Abdominal Paracentesis INDICATIONS: PANCYTOPENIA TECHNIQUE: The indications, alternatives, benefits, risks, and complications of the procedure were explained to the patient. Written informed consent was obtained and placed in the chart. The abdomen and pelvis were examined sonographically, and an appropriate site was chosen for paracentesis. The skin was pre pared and draped in the usual sterile fashion, and bupivacaine 0.5% was infiltrated from the skin liborio n through the peritoneal surface. A 19-gauge catheter-covered needle was then introduced into the pe ritoneal space, the catheter was advanced and the needle was withdrawn, and thereafter peritoneal flu id was withdrawn. The catheter was then removed and a dressing was applied. The fluid was discarded if the clinician did not order diagnostic testing of the fluid. COMPARISON: December 11, 2020 FINDINGS: Access site: Right lower quadrant Needle: One-Step centesis catheter with introducer needle. Fluid volume and description: 5 mm, clear straw-colored Fluid sent for diagnostic testing: Yes Medications: Bupivacaine 0.5% for local anaesthesia. Complications: None. IMPRESSION: 1. Successful ultrasound-guided paracentesis. Reviewed by: Yoel Sparrow MD on 01/29/2021 4:21 PM PST Approved by: Yoel Sparrow MD on 01/29/2021 4:21 PM PST Station ID: [id number]
[2021-01-29 16:38] LABS: CC,BF RBC < 3000 /mm^3; CC,BF WBC 59 /mm^3
[2021-01-29 16:39] LABS: BF CLARITY CLEAR
[2021-01-29 16:40] LABS: BF COLOR YELLOW
[2021-01-29 17:24] LABS: LYMPHOCYTES %,BODY FLUID 4 %; MACROPHAGES %,BODY FLUID 1 %; MONOCYTES %,BODY FLUID 6 %; NEUTROPHILS %, BF 89 %
== END 2021-01-29 13:06 | disposition home or self-care (01) ==
LOC: DI 13:05
PROVIDERS: ATTEND Internal Medicine Hematology & Oncology
DX: D61.818 Other pancytopenia (principal); C85.11 Unspecified B-cell lymphoma, lymph nodes of head, face, and neck
CPT/HCPCS: 36415; 49083; 81599; 85610; 85730; 87070; 87205; 89051

== ENCOUNTER 2021-02-02 10:24 | Outpatient (CLI) | payer MEDICARE, OTHER | END 2021-02-02 10:25 | disposition home or self-care (01) | LOC: DI 10:24 | PROVIDERS: ATTEND Internal Medicine Hematology & Oncology | DX: C85.11 Unspecified B-cell lymphoma, lymph nodes of head, face, and neck (principal); D61.818 Other pancytopenia; R18.8 Other ascites | CPT/HCPCS: 93306 ==

== ENCOUNTER 2021-02-08 13:40 | Outpatient (CLI) | payer MEDICARE, OTHER ==
--- NOTE | 2021-02-08 17:09 | CONSULTATION NOTE ---
Palliative Care Follow Up - Referral Referring Provider: Dr. Vargas Time of Visit: 1340 45 minutes Referral setting: [facility] [place] Referral Reason: Pain of neoplastic origin/anxiety/lymphoma - Information Sources Records reviewed: RN notes reviewed, Previous records reviewed History/Review of Systems obtained from: Patient Exam limitations: No limitations - History of Present Illness Update Brief HPI Update: This is a tello anxious 65-year-old woman with marginal zone B-cell lymphoma, improving massive splenomegaly, and resolving generalized lymphadenopathy. Patient continues with persistent pancytopenia related to chemo, she is currently on bendamustine/rituximab and is here for her fourth cycle. She has had recent imaging, with showing shrinkage of the spleen and resolution of lymphadenopathy but continued thickened and uptake in the colon, she has referral to GI for colonoscopy/biopsy this is pending this . She is also had persistent transudate of ascites, most recent paracentesis was last week, with 5 L removed. She is still quite distended and large, with increasing tightness and discomfort. She is quite distressed with the findings of what she heard him say was "cirrhosis", her family does have a history of cirrhosis and alcoholism, and she does not drink. She continues with fairly significant pain and discomfort throughout her abdomen particularly with worsening ascites. She has had some nausea and vomiting for 2 to 3 days after her last treatment, and continues with shortness of breath, intermittent hiccups, and early satiety. She does have some upper extremity and temporal wasting, she is feeling like she is eating well. She does have fluctuating anxiety appropriate for her situation. It has been difficult in the context she does not have information regarding what to expect next, underlying etiology of her ascites, and concern for prognosis. Palliative care has been working with her pain. We did trial fentanyl 12 mcg patch, found to sedation and distressing for her, unclear if she is not absorbing oral pain medication or had adverse reaction to fentanyl. We did try the morphine sustained release but had nausea and vomiting and dizziness and did very poorly on it did trial this twice. She has had escalating pain in the context she is needed oxycodone 10 mg but has barely lasting 3 hours at a time, did initiate oxyContin 20 mg 3 times daily with improved comfort and decrease pain, though still is needing the oxycodone 10 mg IR every 3 hours while awake. She has used alprazolam once for her anxiety, has been able to manage with deep breathing and distraction up to this point. She is quite anxious to have some answers regarding underlying etiology of her ascites and impact on her prognosis in the future. Past Medical History: Hypothyroidism, chronic diarrhea, anxiety, history of lap band, hysterectomy, and breast reduction surgeries Social History - Living Situation Living arrangement: At home Living Situation: With spouse/s.o. 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 She lives at home with her , they have been for 49 years. [place] 1 [place] her daughter in law Indy have been very supportive. Her mother is still alive, is also being treated for renal cancer. She is long-term been in the community. Medications/Allergies - Medications Home Medications: Ambulatory Orders Medication Instructions Recorded Confirmed Levothyroxine [Synthroid] 88 mcg PO DAILY 03/13/19 02/09/21 Ondansetron Odt [Zofran] 4 mg TL Q6H PRN #30 tablet 10/07/20 02/09/21 Loperamide [Imodium] 1 tab PO PRN PRN 12/04/20 02/09/21 Alprazolam [Xanax] 0.25 mg PO BID PRN 12/10/20 02/09/21 Naloxone HCl [Narcan] 4 mg ALICE ONCE PRN 12/22/20 02/09/21 oxyCODONE [Roxicodone] 10 mg PO PRN PRN 01/22/21 02/09/21 Furosemide [Lasix] 40 mg PO DAILY 02/09/21 02/09/21 Potassium Chloride 10 meq PO DAILY 02/09/21 02/09/21 oxyCODONE ER [OxyCONTIN] 40 mg PO TID MDD tapering up from 02/09/21 02/09/21 20 mg tid - Allergies Allergies/Adverse Reactions: Allergies Allergy/AdvReac Type Severity Reaction Status Date / Time bupropion [From Wellbutrin] Allergy Severe Anaphylaxis Verified 12/08/20 18:25 lidocaine Allergy Severe Anaphylaxis Verified 12/08/20 18:25 adhesive tape AdvReac Intermediate Skin Verified 12/08/20 18:25 irritation Review of Systems - Constitutional Constitutional: reports: Fatigue (remains persistent), Weakness, Weight gain (ascitic fluid). denies: Fever - Eyes Eyes: reports: Vision loss - Ears, Nose & Throat Ears, Nose & Throat: reports: Dry mouth - Cardiovascular Cardiovascular: reports: Edema, Lightheadedness, Exertional dyspnea, Decr. exercise tolerance - Respiratory Respiratory: reports: SOB with exertion. denies: SOB at rest - Gastrointestinal Gastrointestinal: reports: Abdominal pain, Abdominal distention, Nausea (controlled with ondansetron), Bloating, Early satiety. denies: Diarrhea (improved with opioid use; occasional use of miralax), Vomiting (dry heaves at times) - Genitourinary Genitourinary: reports: Frequency - Musculoskeletal Musculoskeletal: reports: Stiffness, Muscle weakness - Integumentary Integumentary: reports: Dryness - Neurological Neurological: reports: General weakness, Numbness (left leg), Abnormal gait - Psychiatric Psychiatric: reports: Anxiety - Endocrine Endocrine: reports: Hypothyroidism - Hematologic/Lymphatic Hematologic/Lymph: reports: Anemia (10.2) - All Other Systems All Other Systems: reports: Reviewed and negative Physical Exam - Vital Signs Temperature: 37.1 C Pulse Rate: 80 Respiratory Rate: 18 Blood Pressure: 134/64 - Physical Exam General Appearance: positive: Alert, Mild distress, Anxious, Cachetic Eyes Bilateral: positive: No scleral icterus ENT: positive: No signs of dehydration Neck: positive: Trachea midline Respiratory: negative: No respiratory distress (breathlessness with conversation/walking) Abdomen: positive: Non-tender, Nml bowel sounds, Distended, Taut Skin: positive: Pallor, Dryness Extremities: positive: Pedal edema (taut up to thigh/sacral area; started 40 mg lasix with very little improvement so far) Neurologic/Psychiatric: positive: Oriented x3, Mood/affect nml, Weakness, Flat affect Palliative Care - POLST Patient has POLST: No POLST Status: Full Code Pain: Pain improved, Location (abdominal), Severity (mod) Tiredness/Fatigue: Moderate (4-6) Drowsiness/Sedation: Mild (1-3) Nausea: Mild (1-3), With vomiting (with last chemo) Anorexia: Mild (1-3) Dyspnea: Severe (7-10) (with activity) Depression: Mild (1-3) Anxiety: Moderate (4-6) (multiple stressors) Feelings of wellbeing/Perceived Quality of Life: Fair, Acceptable, Improved Sleep: Variable sleep pattern Constipation: No Performance Status: Patient's activity tolerance and status is impacted significantly by her ascites, and ability to walk. Her abdomen is quite distended with lower extremity edema and causes her dyspnea. She does have to pace herself. She does try still and work, but is taking this week off after chemo. - Palliative Care Discussion: Patient continues to express the anxiety and difficulty of being in the twilight zone, waiting for final diagnosis and etiology regarding her ascites. She feels if she understood more about her prognosis and how things were going she would be better able to cope. She tries to remain positive, describes good family support, and does have pending appointments this week. She is very anxious, appropriately as this is been fairly long drawn out. She perceives herself as a person who likes control, and is feeling overwhelmed with her current situation. She has other stressors going on, as well they are adding to her anxiety. Results - Lab Results Lab results reviewed: Yes Lab and Imaging Results: Sodium 129, potassium 3.2, total protein 5.3, albumin 2.9, WBC 2.3, Hgb 10.2, platelets 77,000 Impression and Recommendations - Palliative Care Impression: This is a tello anxious 65-year-old woman with marginal zone B-cell lymphoma, improving splenomegaly, and recurrent and significant ascites. Patient does have high symptom burden, this is attributed mostly to her ascites, with increased pain and discomfort, dyspnea, fatigue, and lower extremity edema. Patient presents with appropriate anxiety given the situation, patient is better controlled on OxyContin 20 mg 3 times daily but is still needing a significant amount of breakthrough pain. Palliative care continue to meet with patient to build rapport, counseling provided for pain and symptom management anticipatory guidance Recommendations/Counseling Done: 1. Pain of neoplastic origin. Patient's pain is multifactorial, including abdominal pressure from ascites, splenomegaly, right upper quadrant pain most likely mass-effect. Patient had does not tolerate fentanyl, did poorly on MS Contin with nausea and vomiting, did tolerate and is improved on OxyContin 20 mg 3 times daily. She is still needing a fair amount of breakthrough pain, will go ahead and titrate up the OxyContin, with a goal for 40 mg 3 times daily, she will initiate 1 AM, 1 mid afternoon, and 2 at bedtime for 2 days, then titrate to a.m., 1 mid afternoon, to bedtime for two days, and then increase to 40 mg TID. Goal is to decrease her use of breakthrough oxycodone 10 mg IR, which she has needed about every 3 hours. She has not had any sedation, or adverse effects with OxyContin. 2. Hypokalemia. Patient is on furosemide 40 mg via oncology, today her potassium is 3.2. She had tried high potassium foods but will need supplementation. Started on potassium 10 mEq extended release, instructed to take daily with food and will monitor. 3. Fatigue. This is multifactorial, very difficult with managing her significant ascites, she does have anemia, and gets short of breath with activity. Patient still very much enjoys working, is trying to pace activities. 4. Ascites. She is pending GI consult this , with the goal to address both the colonic thickening, biopsy, and ascites. She is pending a scheduled paracentesis hopefully for this Monday. She is hoping they will remove more than 5 L, as she got very little relief last week. The goal would be scheduled paracentesis on a regular basis, though patient is at high risk for complications in the context of this. 5. Anxiety. Patient presents with appropriate and fluctuating anxiety, does have alprazolam available if needed. Patient has multiple stressors in the context of both her cancer and personal life. Psychosocial support and presence provided. 6. Advanced care planning. Awaiting further input from pending testing, continue with advanced care planning documents but would be helpful to have further prognostic information to guide future decisions. 45 minutes With review of testing, oncology notes, counseling regarding symptom management and pain and anticipatory guidance
== END 2021-02-08 13:41 | disposition home or self-care (01) ==
LOC: PC 13:40
PROVIDERS: ATTEND Nurse Practitioner Adult Health
DX: Z51.5 Encounter for palliative care (principal); G89.3 Neoplasm related pain (acute) (chronic); C85.10 Unspecified B-cell lymphoma, unspecified site; R18.8 Other ascites; R53.83 Other fatigue; R06.09 Other forms of dyspnea; E87.6 Hypokalemia; F41.9 Anxiety disorder, unspecified
CPT/HCPCS: 99215

== ENCOUNTER 2021-02-22 11:46 | Outpatient (CLI) | payer MEDICARE, OTHER ==
[2021-02-22 12:27] LABS: INR 1.2 (0.8-1.2); PT - PROTHROMBIN TIME 13.5 secs (9.9-12.6)
[2021-02-22 12:35] LABS: PARTIAL THROMBOPLASTIN TIME 31.7 secs (24.9-33.3)
[2021-02-22] MEDS ORDERED: BUPIVACAINE 0.5% PF 10 ML VIAL ONE (13:38)
[2021-02-22] MEDS ORDERED: BUPIVACAINE 0.5% PF 10 ML VIAL IM ONE (14:48)
--- NOTE | 2021-02-23 11:48 | Ultrasound Report ---
PROCEDURE: Abdominal Paracentesis INDICATIONS: PANCYTOPENIA TECHNIQUE: The indications, alternatives, benefits, risks, and complications of the procedure were explained to the patient. Written informed consent was obtained and placed in the chart. The abdomen and pelvis were examined sonographically, and an appropriate site was chosen for paracentesis. The skin was pre pared and draped in the usual sterile fashion, and 1% lidocaine was infiltrated from the skin down th rough the peritoneal surface. A 19-gauge catheter-covered needle was then introduced into the perito aamir space, the catheter was advanced and the needle was withdrawn, and thereafter peritoneal fluid w as withdrawn. The catheter was then removed and a dressing was applied. The fluid was discarded if the clinician did not order diagnostic testing of the fluid. COMPARISON: 01/29/2021 and 01/27/2020 FINDINGS: Access site: Right lower quadrant Needle: One-Step centesis catheter with introducer needle. Fluid volume and description: 7 L kaycee fluid Fluid sent for diagnostic testing: Not requested Medications: 1% lidocaine for local anaesthesia. Complications: None. IMPRESSION: Technically successful ultrasound-guided paracentesis. Reviewed by: Antoine Loza MD on 02/23/2021 11:47 AM PST Approved by: Antoine Loza MD on 02/23/2021 11:47 AM PST Station ID: [id number]
== END 2021-02-22 11:47 | disposition home or self-care (01) ==
LOC: DI 11:46
PROVIDERS: ATTEND Internal Medicine Hematology & Oncology
DX: D61.818 Other pancytopenia (principal); C85.10 Unspecified B-cell lymphoma, unspecified site
CPT/HCPCS: 36415; 49083; 85610; 85730

== ENCOUNTER 2021-03-08 15:53 | Outpatient (CLI) | payer MEDICARE, OTHER ==
--- NOTE | 2021-03-08 20:30 | CONSULTATION NOTE ---
Palliative Care Follow Up - Referral Referring Provider: Dr. Shahrzad Vargas Time of Visit: 1245 45 minutes Referral setting: [facility] – [place] Referral Reason: Pain of neoplastic origin/Anxiety/Ascites/Lymphoma - Information Sources Records reviewed: Previous records reviewed History/Review of Systems obtained from: Patient Exam limitations: No limitations - History of Present Illness Update Brief HPI Update: This is a tello anxious 65-year-old woman with marginal zone B-cell lymphoma, improving massive splenomegaly, and resolving generalized lymphadenopathy. She does continue with some persistent pancytopenia related to her chemotherapy, she is currently on 5 of her 6 treatments of bendamustine/rituximab. She is starti ng to have some more toxicities, with increased fatigue, mild nausea, and anorexia for several days afterwards. She still has significant ascites of unknown origin, has seen Dr. Mera the GI specialist, who was not very supportive of her having an ongoing Pleurx catheter for drainage. She did recently have her paracentesis, and removed 7 L. She reports more comfortable and better movement, but did still appear very acidic and large. She is awaiting a liver biopsy on 03/22. She did have a colonoscopy but got canceled because of the snow, is been rescheduled for 3/2 she is hoping the biopsy in the liver will give enough information she does not need to repeat this. She has had 3 colonoscopies in 2 years. Palliative care has been managing patient's pain, we have recently increased her OxyContin to 40 mg 3 times daily, she was intolerant of morphine and fentanyl. She still continues to use intermittent oxycodone for breakthrough pain, but more so every 4-6 hours versus every 3. She is sleeping at night and only needing it 1 time. She reports she is eating better and watching her sodium. She is on some diuretics including newly on spironolactone with her lower extremity edema with some improvement. She continues with anxiety related to that "not knowing", this process is ongoing almost for a year now. She continues to work when she is feeling better, she has a supportive family, but gets somewhat anxious about looking towards the future. Past Medical History: Hypothyroidism, chronic diarrhea, anxiety, history of lap band, hysterectomy, breast reduction surgeries Social History - Living Situation Living arrangement: At home Living Situation: With spouse/s.o. 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 She lives at home with her and they have been for 49 years. [place] 1 [place] and her [id number] [place] have been very supportive. Her mother is still alive and is also being treated for renal cancer. Medications/Allergies - Medications Home Medications: Ambulatory Orders Medication Instructions Recorded Confirmed Levothyroxine [Synthroid] 88 mcg PO DAILY 03/13/19 03/08/21 Ondansetron Odt [Zofran] 4 mg TL Q6H PRN #30 tablet 10/07/20 03/08/21 Loperamide [Imodium] 1 tab PO PRN PRN 12/04/20 03/08/21 Alprazolam [Xanax] 0.25 mg PO BID PRN 12/10/20 03/08/21 Naloxone HCl Nasal [Narcan] 4 mg ALICE ONCE PRN 12/22/20 03/08/21 oxyCODONE [Roxicodone] 10 mg PO Q3HR PRN 01/22/21 03/08/21 Furosemide [Lasix] 20 mg PO DAILY 02/09/21 03/08/21 oxyCODONE ER [OxyCONTIN] 40 mg PO TID 02/09/21 03/08/21 Spironolactone [Aldactone] 100 mg PO DAILY 03/08/21 03/08/21 - Allergies Allergies/Adverse Reactions: Allergies Allergy/AdvReac Type Severity Reaction Status Date / Time bupropion [From Wellbutrin] Allergy Severe Anaphylaxis Verified 12/08/20 18:25 lidocaine Allergy Severe Anaphylaxis Verified 12/08/20 18:25 adhesive tape AdvReac Intermediate Skin Verified 12/08/20 18:25 irritation fentanyl AdvReac Dizziness Verified 03/09/21 16:57 morphine AdvReac Dizziness Verified 03/09/21 16:57 Review of Systems - Constitutional Constitutional: reports: Fatigue (remains persistent), Weakness, Weight gain (ascitic fluid). denies: Fever - Eyes Eyes: reports: Vision loss - Ears, Nose & Throat Ears, Nose & Throat: reports: Dry mouth - Cardiovascular Cardiovascular: reports: Edema (mild improvement with diuretics), Lightheadedness, Exertional dyspnea, Decr. exercise tolerance - Respiratory Respiratory: reports: SOB with exertion. denies: SOB at rest - Gastrointestinal Gastrointestinal: reports: Abdominal pain, Abdominal distention, Nausea (controlled with ondansetron), Bloating, Early satiety, Good appetite. denies: Diarrhea (improved with opioid use; occasional use of miralax), Vomiting (dry heaves at times) - Genitourinary Genitourinary: reports: Frequency, Incontinence - Musculoskeletal Musculoskeletal: reports: Stiffness, Muscle weakness - Integumentary Integumentary: reports: Dryness - Neurological Neurological: reports: General weakness, Numbness (left leg), Abnormal gait - Psychiatric Psychiatric: reports: Anxiety - Endocrine Endocrine: reports: Hypothyroidism - Hematologic/Lymphatic Hematologic/Lymph: reports: Anemia (9.6) - All Other Systems All Other Systems: reports: Reviewed and negative Physical Exam - Vital Signs Temperature: 36.7 C Pulse Rate: 76 Respiratory Rate: 18 O2 Saturation: 100 Blood Pressure: 128/62 - Physical Exam General Appearance: positive: Alert, Anxious, Cachetic (temporal muscle wasting; UE muscle wasting) Eyes Bilateral: positive: No scleral icterus ENT: positive: No signs of dehydration Neck: positive: Trachea midline Cardiovascular: positive: Regular rate & rhythm Respiratory: positive: Diminished in bases Abdomen: positive: Non-tender, Nml bowel sounds, Distended, Taut Skin: positive: Pallor, Dryness Extremities: positive: Pedal edema (taut up to thigh/sacral area; some mild improvement with spironalactone) Neurologic/Psychiatric: positive: Oriented x3, Mood/affect nml, Weakness, Flat affect Palliative Care - POLST Patient has POLST: No POLST Status: Full Code Pain: Pain improved, Location (diffuse abdominal pain), Severity (3/10) Feelings of wellbeing/Perceived Quality of Life: Fair, Acceptable, No change Sleep: Variable sleep pattern Constipation: No Performance Status: Patient feels like she can move better with her recent paracentesis, she is ambulatory, denies dizziness. Does have to pace herself, is able to manage her ADLs and in fact is working on days she feels well - Palliative Care Discussion: Patient is appropriately tearful as she is been waiting for more definitive information about her current condition it is "not knowing" along with what to expect in the future. She at least could then "plan". At this point she tries to shut everything out and just stays in her own little world, she does have significant anxiety though feels like she is doing better with this. She does feel like she has adequate support, is hoping a liver biopsy will give information about the bigger picture. She has been working on some end-of-life planning tasks, though has not completed advanced directives in the context still unknown prognosis and etiology of ascites. She is hoping for the best, but feels like it would be helpful to know what to expect. Results - Lab Results Lab results reviewed: Yes Impression and Recommendations - Palliative Care Impression: This is a tello anxious 65-year-old woman with marginal zone B-cell lymphoma, improving splenomegaly, and recurrent and significant ascites. Patient has seen GI, unfortunately was unable to get a colonoscopy, but does have pending liver biopsy 03/22. She is currently on OxyContin 40 mg 3 times daily but still needing oxycodone 20 mg for breakthrough pain. Patient with recent paracentesis, is somewhat more comfortable. Palliative care continue to meet with patient to build rapport, counseling provided for pain and symptom management and anticipatory guidance Recommendations/Counseling Done: Splenic1. Pain of neoplastic origin. Patient's pain is multifactorial including abdominal pressure from ascites, likely, right upper quadrant pain most likely mass-effect. Patient is on OxyContin 40 mg 3 times daily, is using oxycodone IR 2 tabs been needed less often. She is not had any sedation or adverse effects with OxyContin. We will continue. 2. Hypokalemia. Patient is currently on now spironolactone, her potassium today is 4.4, she relates having trouble taking the potassium will stop. 3. Fatigue. This is multifactorial, she has recently had a paracentesis which does help with her movement. She does have anemia and gets quite short of breath with activity. She still very much enjoys working, and is pacing activities. She has no sedation, and is tolerating her pain meds. 4. Ascites. She is awaiting liver biopsy, hoping to get some understanding regarding underlying etiology, unfortunately colonoscopy got rescheduled into May. At this point in time she is scheduled paracentesis as needed, but does get relief on a regular basis. 5. Anxiety. Patient presents with appropriate and fluctuating anxiety, has not needed to use alprazolam. She is learning to resent her she does have multiple stressors. Psychosocial support provided. 6. Advanced care planning. Awaiting further input from pending testing to continue with advanced care planning documents patient would find it helpful to have further prognostic information to guide future decisions. She has been living somewhat in the "twilight zone" for this last several months and year. She does get quite fearful and anxious with every new test or finding, as things have continued to be difficult for her. 45 minutes Review of labs, charts, oncology notes and imaging. Counseling provided for pain and symptom management, anticipatory guidance, and coordination of care with oncology team
== END 2021-03-08 15:54 | disposition home or self-care (01) ==
LOC: PC 15:53
PROVIDERS: ATTEND Nurse Practitioner Adult Health
DX: Z51.5 Encounter for palliative care (principal); G89.3 Neoplasm related pain (acute) (chronic); R53.83 Other fatigue; R11.0 Nausea; R63.0 Anorexia; D61.810 Antineoplastic chemotherapy induced pancytopenia; T45.1X5A Adverse effect of antineoplastic and immunosuppressive drugs, initial encounter; F41.9 Anxiety disorder, unspecified; E87.6 Hypokalemia; C85.10 Unspecified B-cell lymphoma, unspecified site; R18.8 Other ascites; Z79.891 Long term (current) use of opiate analgesic; Z79.899 Other long term (current) drug therapy
CPT/HCPCS: 99215

== ENCOUNTER 2021-03-19 09:13 | Outpatient (CLI) | payer MEDICARE, OTHER ==
[2021-03-19] MEDS ORDERED: BUPIVACAINE 0.5% PF 10 ML VIAL ONE ×2 (09:51→10:44)
[2021-03-19] MEDS ORDERED: BUPIVACAINE 0.5% PF 10 ML VIAL IM ONE (11:56)
--- NOTE | 2021-03-19 16:19 | Ultrasound Report ---
PROCEDURE: Abdominal Paracentesis INDICATIONS: ASCITES TECHNIQUE: The indications, alternatives, benefits, risks, and complications of the procedure were explained to the patient. Written informed consent was obtained and placed in the chart. The abdomen and pelvis were examined sonographically, and an appropriate site was chosen for paracentesis. The skin was pre pared and draped in the usual sterile fashion, and 0.5% Bupivacaine was infiltrated from the skin liborio n through the peritoneal surface. A 19-gauge catheter-covered needle was then introduced into the pe ritoneal space, the catheter was advanced and the needle was withdrawn, and thereafter peritoneal flu id was withdrawn. The catheter was then removed and a dressing was applied. The fluid was discarded if the clinician did not order diagnostic testing of the fluid. COMPARISON: Ultrasound dated paracentesis, 02/22/2021. FINDINGS: Access site: Right lower abdomen. Needle: One-Step centesis catheter with introducer needle. Fluid volume and description: 9.6 L; clear. Fluid sent for diagnostic testing: Not requested by referring clinician. Medications: 1% lidocaine for local anaesthesia. Complications: None. IMPRESSION: Successful ultrasound-guided paracentesis. Reviewed by: Alesha Gallagher MD on 03/19/2021 4:18 PM PST Approved by: Alesha Gallagher MD on 03/19/2021 4:18 PM PST Station ID: [id number]
== END 2021-03-19 09:14 | disposition home or self-care (01) ==
LOC: DI 09:13
PROVIDERS: ATTEND Physician Assistant
DX: R18.8 Other ascites (principal); C85.11 Unspecified B-cell lymphoma, lymph nodes of head, face, and neck; D61.810 Antineoplastic chemotherapy induced pancytopenia
CPT/HCPCS: 49083

== ENCOUNTER 2021-04-12 16:18 | Outpatient (CLI) | payer MEDICARE, OTHER ==
--- NOTE | 2021-04-12 20:23 | CONSULTATION NOTE ---
Palliative Care Follow Up - Referral Referring Provider: Dr. Shahrzad Vargas Time of Visit: 1030 45 min Referral setting: [facility] [place] Reason: Pain of neoplastic origin/Anxiety/Ascites/Lymphoma - Information Sources Records reviewed: Previous records reviewed History/Review of Systems obtained from: Patient Exam limitations: No limitations - History of Present Illness Update Brief HPI Update: This is a tello anxious 65-year-old woman with marginal zone B-cell lymphoma, massive splenomegaly, and resolving generalized lymphadenopathy. She continues with some persistent pancytopenia, unfortunately had her last chemotherapy held, she is awaiting her final cycle #6, hoping today her counts will be improved.She is still having significant ascites of unknown origin, has been seeing Dr. Mera the GI specialist, she is due to see him next Monday. She feels currently though she is has significant ascites, she would like to wait till she sees him regarding her pending paracentesis. She still has a pending colon anoscopy 05/04, she had hoped with her biopsy on 03/12 she would not need to but still remains indeterminant as far as her underlying liver changes and still has pending work up. Palliative care has been managing patient's pain, she has done very well on her OxyContin 40 mg 3 times daily, she is intolerant to morphine and fentanyl. She has needed very little breakthrough pain medication which she has oxycodone for. She is sleeping at night, she continues on diuretics, does have persistent lower extremity edema. Though her weight has managed to stay fairly consistent. She continues to struggle with anxiety of the "not knowing" as there is still no definitive reason regarding her ascites. Past Medical History: Hypothyroidism, chronic diarrhea, anxiety, history of lap band, hysterectomy, breast reduction surgeries Social History - Living Situation Living arrangement: At home Living Situation: With spouse/s.o. 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 It has been quite difficult with her delaying treatment, managing her clients. She finds is quite anxiety producing. She lives at home with her they have been for 49 years, [place] 1 [place] [id number]. Her mother is still alive and is also being treated currently for renal cancer. Medications/Allergies - Medications Home Medications: Ambulatory Orders Medication Instructions Recorded Confirmed Levothyroxine [Synthroid] 88 mcg PO DAILY 03/13/19 04/12/21 Ondansetron Odt [Zofran] 4 mg TL Q6H PRN #30 tablet 10/07/20 04/12/21 Loperamide [Imodium] 1 tab PO PRN PRN 12/04/20 04/12/21 Alprazolam [Xanax] 0.25 mg PO BID PRN 12/10/20 04/12/21 Naloxone HCl Nasal [Narcan] 4 mg ALICE ONCE PRN 12/22/20 04/12/21 oxyCODONE [Roxicodone] 10 mg PO Q3HR PRN 01/22/21 04/12/21 Furosemide [Lasix] 20 mg PO DAILY 02/09/21 04/12/21 oxyCODONE ER [OxyCONTIN] 40 mg PO TID 02/09/21 04/12/21 Spironolactone [Aldactone] 100 mg PO DAILY 03/08/21 04/12/21 Senna [Senokot] 2 tab PO TID PRN 04/12/21 04/12/21 - Allergies Allergies/Adverse Reactions: Allergies Allergy/AdvReac Type Severity Reaction Status Date / Time bupropion [From Wellbutrin] Allergy Severe Anaphylaxis Verified 12/08/20 18:25 lidocaine Allergy Severe Anaphylaxis Verified 12/08/20 18:25 adhesive tape AdvReac Intermediate Skin Verified 12/08/20 18:25 irritation fentanyl AdvReac Dizziness Verified 03/09/21 16:57 morphine AdvReac Dizziness Verified 03/09/21 16:57 Review of Systems - Constitutional Constitutional: reports: Fatigue (remains persistent), Weakness, Weight stable. denies: Fever - Eyes Eyes: reports: Vision loss - Ears, Nose & Throat Ears, Nose & Throat: reports: Dry mouth - Cardiovascular Cardiovascular: reports: Edema (mild improvement with diuretics but persistent 1-2+; deceptive as legs are quite thin), Lightheadedness, Exertional dyspnea, Decr. exercise tolerance - Respiratory Respiratory: reports: SOB with exertion. denies: SOB at rest - Gastrointestinal Gastrointestinal: reports: Abdominal pain, Abdominal distention, Constipation (new symptom), Bloating, Good appetite - Genitourinary Genitourinary: reports: Frequency - Musculoskeletal Musculoskeletal: reports: Stiffness, Muscle weakness - Integumentary Integumentary: reports: Dryness - Neurological Neurological: reports: General weakness, Numbness (left leg), Abnormal gait - Psychiatric Psychiatric: reports: Anxiety - Endocrine Endocrine: reports: Hypothyroidism - Hematologic/Lymphatic Hematologic/Lymph: reports: Anemia (8.5) - All Other Systems All Other Systems: reports: Reviewed and negative Physical Exam - Physical Exam General Appearance: positive: No acute distress, Alert, Anxious Eyes Bilateral: positive: Normal inspection ENT: positive: No signs of dehydration Neck: positive: Trachea midline Cardiovascular: positive: Regular rate & rhythm Respiratory: positive: No respiratory distress Abdomen: positive: Tenderness, Distended, Taut Skin: positive: Pallor (sallow), Dryness Extremities: positive: Pedal edema, Other (ataxic gait) Neurologic/Psychiatric: positive: Oriented x3, Mood/affect nml, Weakness, Flat affect Palliative Care - POLST Patient has POLST: No POLST Status: Full Code Pain: Pain improved, Location (abdominal), Severity (4/10 with meds) Tiredness/Fatigue: Moderate (4-6) Drowsiness/Sedation: Moderate (4-6) Nausea: Mild (1-3) Anorexia: Moderate (4-6) Dyspnea: Moderate (4-6) Depression: Moderate (4-6) Anxiety: Moderate (4-6) Feelings of wellbeing/Perceived Quality of Life: Good Sleep: Sleep improved, Variable sleep pattern Constipation: Yes, Opoid induced, Intermittent constipation Performance Status: Patient does have significant fatigue, is to be usually more tired towards in the day. Her balance is off both because of her ascites and her lower extremity numbness. She is able to manage her ADLs, needs some assistance with lower extremity dressing at times. She is trying to continue to work. - Palliative Care Discussion: Patient continues to struggle with the ambiguity of her current situation, is helpful will have some answers regarding her ascites and long-term plan. She is somewhat upset it does look like she will not be getting therapy today. This is Peter 6 and final cycle. She is hoping to move on from this. She is very concerned about the underlying reasons that this is getting delayed. She has had lots of unfortunate events along the way and no definitive answers. She is trying to live day by day, but is worried about the future and implications. Results - Lab Results Lab results reviewed: Yes Impression and Recommendations - Palliative Care Impression: This is a tello anxious 65-year-old woman with marginal zone B-cell lymphoma, splenomegaly, and recurrent/significant ascites of unknown origin.She has a pending colonoscopy, unfortunately her liver biopsy was indeterminant for etiology of her ascites and is pending further work up. She is due for cycle 6, unfortunately her counts are too low again today to move forward. Her pain is currently controlled on her regimen, and requires no changes today. Palliative care continue to meet with patient for pain and symptom management, psychosocial support, and anticipatory guidance Recommendations/Counseling Done: 1. Pain of neoplastic origin. Patient's pain is multifactorial, including abdominal pressure from ascites, right upper quadrant pain mostly likely mass- effect. Patient is on OxyContin 40 mg 3 times daily, has only needed oxycodone IR intermittently. She has not had any adverse effects, and is able to continue to work. No changes made today. 2. Ascites. Unfortunately her liver biopsy was not informative as far as the underlying etiology of patient's recurrent ascites. She is meeting with GI again on Monday. At this point she does not feel she needs a paracentesis, though she is reaccumulating fluid. She is using diuretics, just continues with some persistent lower extremity edema but no significant weight changes. 3. Fatigue. This is multifactorial, she has persistent anemia and pancytopenia. She is pacing herself, she has no sedation is tolerating pain meds. She does get quite breathless with progressive ambulation. We will continue to monitor. 4. Anxiety. Patient presents with appropriate and fluctuating anxiety, she does have multiple stressors. Continues to struggle with not having a clear plan or unknown prognosis. She is quite disappointed given she is unable to get her treatment again today. Palliative care providing ongoing psychosocial support. 5. Advanced care planning. Continue to await further results, patient hopeful for prognostic information to guide further decisions. She does get quite fearful and anxious with every new test or finding, as things have continue to be difficult and undefined for her. 45 minutes review of chart, labs, oncology notes, [id number] with patient for counseling for pain and symptom management, opioid safety, and anticipatory guidance.
== END 2021-04-12 16:19 | disposition home or self-care (01) ==
LOC: PC 16:18
PROVIDERS: ATTEND Nurse Practitioner Adult Health
DX: Z51.5 Encounter for palliative care (principal); G89.3 Neoplasm related pain (acute) (chronic); C85.10 Unspecified B-cell lymphoma, unspecified site; R18.8 Other ascites; D64.9 Anemia, unspecified; D61.818 Other pancytopenia; F41.9 Anxiety disorder, unspecified
CPT/HCPCS: 99215

== ENCOUNTER 2021-05-24 07:56 | Outpatient (CLI) | payer MEDICARE, OTHER ==
[2021-05-24 08:43] LABS: INR 1.3 (0.8-1.2); PT - PROTHROMBIN TIME 14.5 secs (9.9-12.6)
[2021-05-24 08:51] LABS: PARTIAL THROMBOPLASTIN TIME 33.9 secs (24.9-33.3)
[2021-05-24 08:53] LABS: ALBUMIN 3.6 g/dL (3.2-5.5); ALBUMIN/GLOBULIN RATIO 1.6 (1.0-2.2); BILIRUBIN,TOTAL 0.5 mg/dL (0.2-1.0); CALCIUM 8.6 mg/dL (8.5-10.3); POTASSIUM 3.7 mmol/L (3.5-5.0); TOTAL PROTEIN 5.8 g/dL (6.7-8.2)
[2021-05-24] MEDS ORDERED: BUPIVACAINE 0.5% PF 30 ML VIAL ID ONE (11:00)
--- NOTE | 2021-05-25 11:43 | Ultrasound Report ---
PROCEDURE: Abdominal Paracentesis INDICATIONS: ASCITES TECHNIQUE: The indications, alternatives, benefits, risks, and complications of the procedure were explained to the patient. Written informed consent was obtained and placed in the chart. The abdomen and pelvis were examined sonographically, and an appropriate site was chosen for paracentesis. The skin was pre pared and draped in the usual sterile fashion, and 1% lidocaine was infiltrated from the skin down th rough the peritoneal surface. A 19-gauge catheter-covered needle was then introduced into the perito aamir space, the catheter was advanced and the needle was withdrawn, and thereafter peritoneal fluid w as withdrawn. The catheter was then removed and a dressing was applied. The fluid was discarded if the clinician did not order diagnostic testing of the fluid. COMPARISON: None FINDINGS: Access site: Left lower quadrant Needle: One-Step centesis catheter with introducer needle. Fluid volume and description: 6 L Fluid sent for diagnostic testing: Yes Medications: 1% lidocaine for local anaesthesia. Complications: None. IMPRESSION: Successful ultrasound-guided paracentesis. Reviewed by: Wanda Reveles MD on 05/25/2021 11:41 AM PDT Approved by: Wanda Reveles MD on 05/25/2021 11:41 AM PDT Station ID: [id number]
== END 2021-05-24 07:57 | disposition home or self-care (01) ==
LOC: DI 07:56
PROVIDERS: ATTEND Internal Medicine Gastroenterology
DX: R18.8 Other ascites (principal)
CPT/HCPCS: 36415; 49083; 80053; 85610; 85730

== ENCOUNTER 2021-05-24 11:15 | Outpatient (CLI) | payer MEDICARE, OTHER ==
--- NOTE | 2021-05-24 12:57 | CONSULTATION NOTE ---
Palliative Care Follow Up - Referral Referring Provider: Dr. Shahrzad Vargas Time of Visit: 11:15 60 minutes Referral setting: [facility] – [place] Referral Reason: Ascites/Pain of neoplastic origin/Fatigue/Anxiety/Lymphoma - Information Sources Records reviewed: Previous records reviewed History/Review of Systems obtained from: Patient Exam limitations: No limitations - History of Present Illness Update Brief HPI Update: This is a tello anxious 65-year-old woman with marginal cell zone B-cell lymphoma, massive splenomegaly, and generalized lymphadenopathy. She continues with persistent pancytopenia, and this last [place] showed it was worsening. Her WBC was 0.6, hemoglobin 8.8, hematocrit 25.8 and her ANC 0.1. Patient has also had worsening progressive ascites. She is working with Dr. Mera GI specialist, she does have significant ascites, unfortunately through a series of events she only now just got her paracentesis today. It is limited to 6 L, she has had some relief, but had gotten significantly in distress, she is very tearful health painful and difficult to the whole procedure was, she ended up almost 4 weeks past when she had been scheduled to receive it. She is feeling somewhat more comfortable, but now is distressed as part of her oncology plan is to have a PET scan and bone marrow biopsy. She is feeling overwhelmed today as there is no ongoing relief from her ongoing work-up and no specific answers that inform her prognosis or what to expect in the future.She did have a colonoscopy, it did not show anything in the area of "that lit up". As far as positive biopsies, she did have a few polyps that were negative, and does not have to have it repeated for 3 years. Patient is very concerned about "gaining weight" as she is on diuretics for ascites, she is on spironolactone 100 mg and Lasix 20 mg, she did increase it over the weekend as her swelling had worsened significantly, she is back to her baseline dose currently. Her abdomen remains quite large, she does have taut swelling in her thighs, and her lower extremity calves those are improved. Unfortunately she looks quite cachectic, she does look like she is having more muscle wasting up in her upper thoracic clavicle area as well as her arms. She reports she is eating, though in review her calorie count is pretty low. She d oes have some early satiety given her abdominal ascites. She is quite depressed, her anxiety is worsening, and feels overwhelmed overall. She continues on the OxyContin 40 mg 3 times daily, is not needing any breakthrough medication, she continues to struggle with anxiety of "not knowing", and is using the alprazolam mostly at bedtime as that is when she gets her panic attacks. Past Medical History: Hypothyroidism, chronic diarrhea currently resolved, anxiety, history of lap band, hysterectomy, breast reduction surgeries, liver biopsy, bone marrow x 2 Social History - Living Situation Living arrangement: At home Living Situation: With spouse/s.o. 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 She lives at home with her , they have been for 49 years, [place] lives with her [id number] and are quite supportive. Her mother still alive, she herself is being currently treated for renal cancer, she is feeling but bad because she cannot be more of support. Medications/Allergies - Medications Home Medications: Ambulatory Orders Medication Instructions Recorded Confirmed Levothyroxine [Synthroid] 88 mcg PO DAILY 03/13/19 05/24/21 Ondansetron Odt [Zofran] 4 mg TL Q6H PRN #30 tablet 10/07/20 05/24/21 Loperamide [Imodium] 1 tab PO PRN PRN 12/04/20 05/24/21 Alprazolam [Xanax] 0.25 mg PO BID PRN 12/10/20 05/24/21 Naloxone HCl Nasal [Narcan] 4 mg ALICE ONCE PRN 12/22/20 05/24/21 oxyCODONE [Roxicodone] 10 mg PO Q3HR PRN 01/22/21 05/24/21 Furosemide [Lasix] 20 mg PO DAILY 02/09/21 05/24/21 oxyCODONE ER [OxyCONTIN] 40 mg PO TID 02/09/21 05/24/21 Spironolactone [Aldactone] 100 mg PO DAILY 03/08/21 05/24/21 Senna [Senokot] 2 tab PO TID PRN 04/12/21 05/24/21 Iron,Carbonyl/Ascorbic Acid [Fe C 1 tab PO .MWF 05/24/21 05/24/21 Tablet] - Allergies Allergies/Adverse Reactions: Allergies Allergy/AdvReac Type Severity Reaction Status Date / Time bupropion [From Wellbutrin] Allergy Severe Anaphylaxis Verified 12/08/20 18:25 lidocaine Allergy Severe Anaphylaxis Verified 12/08/20 18:25 adhesive tape AdvReac Intermediate Skin Verified 12/08/20 18:25 irritation fentanyl AdvReac Dizziness Verified 03/09/21 16:57 morphine AdvReac Dizziness Verified 03/09/21 16:57 Review of Systems - Constitutional Constitutional: reports: Fatigue (worsening), Weakness, Other (appears very ca chetic). denies: Fever - Eyes Eyes: reports: Vision loss - Ears, Nose & Throat Ears, Nose & Throat: reports: Dry mouth - Cardiovascular Cardiovascular: reports: Edema (mild improvement with diuretics but persistent 1-2+; deceptive as legs are quite thin; taut in thighs up into sacral area), Lightheadedness, Exertional dyspnea, Decr. exercise tolerance - Respiratory Respiratory: reports: SOB with exertion. denies: SOB at rest - Gastrointestinal Gastrointestinal: reports: Abdominal pain, Abdominal distention, Constipation (intermittent), Bloating, Early satiety - Genitourinary Genitourinary: reports: Frequency - Musculoskeletal Musculoskeletal: reports: Stiffness, Muscle weakness (worsening with ascites over weekend) - Integumentary Integumentary: reports: Dryness - Neurological Neurological: reports: General weakness, Numbness (left leg), Abnormal gait - Psychiatric Psychiatric: reports: Depression (very tearful and overwhelmed today), Anxiety - Endocrine Endocrine: reports: Hypothyroidism - Hematologic/Lymphatic Hematologic/Lymph: reports: Anemia (8.8) - All Other Systems All Other Systems: reports: Reviewed and negative Physical Exam - Vital Signs Temperature: 36.1 C Pulse Rate: 61 Respiratory Rate: 12 Blood Pressure: 115/49 (post procedure) - Physical Exam General Appearance: positive: Alert, Mild distress (with news of more testing needed), Anxious Eyes Bilateral: positive: Normal inspection ENT: positive: No signs of dehydration Neck: positive: Trachea midline Cardiovascular: positive: Regular rate & rhythm Respiratory: positive: No respiratory distress Abdomen: positive: Tenderness, Distended, Taut (firm; reports it got to HARD) Skin: positive: Pallor (sallow), Dryness Extremities: positive: Pedal edema, Other (ataxic gait) Neurologic/Psychiatric: positive: Oriented x3, Mood/affect nml, Weakness, Flat affect Palliative Care - POLST Patient has POLST: No Pain: Pain unchanged, Pain improved (with relief of paracentesis; was over the top on the weekend waiting on paracentesis), Location (abdominal diffuse), Severity (5/10) Tiredness/Fatigue: Mild (1-3), Moderate (4-6) Drowsiness/Sedation: Mild (1-3) Nausea: None Anorexia: None Dyspnea: Moderate (4-6) Depression: Moderate (4-6) Anxiety: Moderate (4-6) Feelings of wellbeing/Perceived Quality of Life: Fair, Worsening Sleep: Variable sleep pattern (worse over weekend with ascites worsening) Constipation: Yes, Intermittent constipation Performance Status: Patient is declining functionally, related to ongoing muscle weakness and wasting, has less endurance, with recurrent ascites is worse as well. She is feeling very discouraged, does have some numbness in her left leg, she is managing her ADLs with some assistance. - Palliative Care Discussion: Patient is quite tearful today, unfortunately paracentesis still got delayed, she was quite miserable over the weekend, now she presents with facing needing work-up further for her pancytopenia. She does not present with any understanding of her current situation, she is exhausted as she really has had no information specifically about what to expect. She does understand that they had originally thought she was doing better, as far as her lymphoma, they have not been able to give her any definitive information about her liver other than as most likely damage from her CA, she is quite exhausted overall and is not looking forward to further work-up. She is having this extreme anxiety as a result of all this, she feels like she "needs to be strong", that it is always been up to her to be positive. We did discuss in the context of this that she has a lot going on, body image changes, and the unknowns into the future, and n ow more work-up that has not so far really helped her understand what her long- term prognosis is. Results - Lab Results Lab results reviewed: Yes Impression and Recommendations - Palliative Care Impression: This is a tello 65-year-old woman with marginal cell zone B-cell lymphoma, splenomegaly, and recurrent/significant ascites of unknown origin. She did have a colonoscopy with no significant findings, did have 4 polyps tubular adenomas, but none and biopsies done of suspicious part of her colon without any known known. She is now continue with persistent pancytopenia, she is to get a PET scan and another bone marrow. She is feeling quite overwhelmed and distressed by this news, and exhausted from her worsening ascites, she did get some relief with her paracentesis. Palliative care continue meet with patient for pain and symptom management, psychosocial support and anticipatory guidance Recommendations/Counseling Done: 1. Pain of neoplastic origin. Patient's pain is multifactorial, including abdominal pressure from ascites, right upper quadrant pain most likely related to mass-effect, and intermittent peripheral neuropathy. Patient is on OxyContin 40 mg 3 times daily, only needing oxycodone IR intermittently. No further changes made. 2. Ascites. Patient unfortunately had a significant delay in ability to get paracentesis, did reach out to Dr. Mera to see about scheduling in 4 to 5 weeks as a preemptive, suspect she will reaccumulate fairly quickly. She is using the diuretics, but also having persistent weight loss. 3. Fatigue. This is multifactorial, patient has persistent anemia and worsening neutropenia. Concern for patient's increased risk of infection, I did review signs and symptoms to access the ED as well as reach out to oncology if needs to be on prophylactic medications. She has not been able to be as active, will continue to monitor. 4. Anxiety. Patient presents with appropriate and fluctuating anxiety. She does have multiple stressors and continues to struggle with not having a clear plan and unknown prognosis. She is quite distressed over needing further work- up and all the unknowns. Palliative care providing ongoing psychosocial support and coordination of care. 5. Cachexia. Patient continues with ongoing symptoms of weight loss with upper extremity wasting, patient review of intake, most likely less than caloric needs. Counseling provided regarding water weight versus muscle wasting/weight. Encouraged to add evening snack at least 1 more meal, and to start protein drinks at least 1-2 daily 6. Advanced care planning. Continue to await further results, patient is hopeful for prognostic information to guide further improve decisions but now needs further work-up yet again. She is quite fearful and anxious with every new test or finding as things continue to be difficult and undefined for her. 60 minutes with review of labs, procedures, oncology notes, [id number] and counseling with patient, review of pain and symptom management, psychosocial support and anticipatory guidance.
== END 2021-05-24 11:16 | disposition home or self-care (01) ==
LOC: PC 11:15
PROVIDERS: ATTEND Nurse Practitioner Adult Health
DX: Z51.5 Encounter for palliative care (principal); G89.3 Neoplasm related pain (acute) (chronic); C85.10 Unspecified B-cell lymphoma, unspecified site; R18.8 Other ascites; R53.83 Other fatigue; F41.9 Anxiety disorder, unspecified; R64 Cachexia
CPT/HCPCS: 99215

== ENCOUNTER 2021-05-28 05:15 | Outpatient (CLI) | payer MEDICARE, OTHER | END 2021-05-28 05:16 | disposition critical access hospital (66) | LOC: EMS 05:15 | DX: R50.9 Fever, unspecified (principal); R11.0 Nausea; R60.0 Localized edema | CPT/HCPCS: A0425; A0429 ==

== ENCOUNTER 2021-06-10 11:10 | Outpatient (CLI) | payer MEDICARE, OTHER ==
--- NOTE | 2021-06-10 15:32 | CONSULTATION NOTE ---
Palliative Care Follow Up - Referral Referring Provider: Dr. 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 Noted from GI she does not categorically have cirrhosis, but likely reason for ascites and need to address her symptoms similarly. She has been having intermittent paracentesis, unfortunate last 1 got extended and caused her a great deal distress and discomfort. She is quite anxious this does not happen again. She did have 2 paracentesis in [facility], though goal has been to draw these out. She did have a total of 8 L removed.She was told she was needed weekly paracentesis, we reviewed again this is not true it is not malignant ascites, but related to her liver damage and agreed to follow-up with Dr. Mera again, as his goal is to stretch these out though patient remains anxious about having them often enough for symptom relief. Patient had been put on prophylactic antibiotics, she had been given 7 days worth, unfortunately originally was scheduled with oncology at the day 7, to further guide recommendations. She did get her appointment moved to the end of the week, so has been off of them since Monday. Will defer to oncology and labs tomorrow, versus starting again today. I suspect she will need to be on them until her pancytopenia has improved. It does look like though she does not have a recurrence of her lymphoma in her bone marrow, she has the this results through her portal. Also the PET scan does not show any significant findings either. She is relieved, but also somewhat distraughtIn the context of no answers for her underlying issues, she has continued to struggle with lack of information and explanation regarding her 2 processes going on. She is glad her lymphoma is not back, but is still needing to deal with as far as quality of life issues her ongoing ascites and management of her liver. The GI doctor had talked to her about a TIPS procedure, reviewed I had seen a successful outcome on that previously, she had away from it because of the complications. She is reconsidering though if her prognosis does seem like it is more dependent on her liver disease and her lymphoma. Though patient with a recurrent pancytopenia would not be a candidate. Patient has appropriate underlying anxiety, but does get exacerbated with multiple tests, and no solid answers. She tries to normalize her life by continuing to work, she is being very careful with masking and disinfecting. She reports she is feeling little bit better since hospitalization, only needing alprazolam at bedtime, she tries to stay distracted.Her pain is currently controlled on OxyContin 40 mg 3 times daily, she has not needed much for breakthrough pain. We had discussed something more long-acting for her anxiety, will await if to return to prophylactic antibiotics, because this would include Diflucan which does interact with multiple medications. Past Medical History: Hypothyroidism, chronic diarrhea currently resolved, anxiety, history of lap band, hysterectomy, breast reduction surgeries, liver biopsy, bone marrow x3 Social History - Living Situation Living arrangement: At home Living Situation: With spouse/s.o. 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 She lives at home with her , they have been for 49 years. [place] [id number] and are quite supportive, she did lose a child at a young age. Her mother is still alive, who is currently being treated for renal cancer, she is feeling bad because she cannot be more of support. Medications/Allergies - Medications Home Medications: Ambulatory Orders Medication Instructions Recorded Confirmed Levothyroxine [Synthroid] 88 mcg PO DAILY 03/13/19 06/10/21 Ondansetron Odt [Zofran Odt] 4 mg TL Q6H PRN #30 tablet 10/07/20 06/10/21 Loperamide [Imodium] 1 tab PO PRN PRN 12/04/20 06/10/21 Alprazolam [Xanax] 0.25 mg PO BID PRN 12/10/20 06/10/21 Naloxone HCl Nasal [Narcan Nasal] 4 mg ALICE ONCE PRN 12/22/20 06/10/21 oxyCODONE [Roxicodone] 10 mg PO Q3HR PRN 01/22/21 06/10/21 Furosemide [Lasix] 20 mg PO DAILY 02/09/21 06/10/21 oxyCODONE ER [OxyCONTIN] 40 mg PO TID 02/09/21 06/10/21 Spironolactone [Aldactone] 100 mg PO DAILY 03/08/21 06/10/21 Senna [Senokot] 2 tab PO TID PRN 04/12/21 06/10/21 Iron,Carbonyl/Ascorbic Acid [Fe C 1 tab PO .MWF 05/24/21 06/10/21 Tablet] - Allergies Allergies/Adverse Reactions: Allergies Allergy/AdvReac Type Severity Reaction Status Date / Time bupropion [From Wellbutrin] Allergy Severe Anaphylaxis Verified 12/08/20 18:25 lidocaine Allergy Severe Anaphylaxis Verified 12/08/20 18:25 adhesive tape AdvReac Intermediate Skin Verified 12/08/20 18:25 irritation fentanyl AdvReac Dizziness Verified 03/09/21 16:57 morphine AdvReac Dizziness Verified 03/09/21 16:57 Review of Systems - Constitutional Constitutional: reports: Fatigue, Weakness, Poor appetite (forcing herself to eat), Weight stable, Other (appears very cachetic). denies: Fever - Eyes Eyes: reports: Vision loss - Ears, Nose & Throat Ears, Nose & Throat: reports: Dry mouth - Cardiovascular Cardiovascular: reports: Edema (mild improvement with diuretics but persistent 1-2+; deceptive as legs are quite thin; taut in thighs up into sacral area; improved since hospitalization), Exertional dyspnea, Decr. exercise tolerance - Respiratory Respiratory: reports: SOB with exertion. denies: SOB at rest - Gastrointestinal Gastrointestinal: reports: Abdominal pain, Abdominal distention (Has reaccumulated but tolerable), Bloating, Early satiety. denies: Constipation (loose stool with Senokot) - Genitourinary Genitourinary: reports: Frequency - Musculoskeletal Musculoskeletal: reports: Stiffness, Muscle weakness (worsening with ascites over weekend) - Integumentary Integumentary: reports: Dryness - Neurological Neurological: reports: General weakness, Numbness (left leg), Abnormal gait - Psychiatric Psychiatric: reports: Depression, Anxiety (reviewed using alprazalom appropriately) - Endocrine Endocrine: reports: Hypothyroidism - Hematologic/Lymphatic Hematologic/Lymph: reports: Anemia (9.2), Recurrent infections - All Other Systems All Other Systems: reports: Reviewed and negative Physical Exam - Vital Signs Temperature: 97.4 C Pulse Rate: 64 Respiratory Rate: 18 O2 Saturation: 99 Blood Pressure: 132/70 - Physical Exam General Appearance: positive: Alert Eyes Bilateral: positive: Normal inspection ENT: positive: No signs of dehydration Neck: positive: Trachea midline Cardiovascular: positive: Regular rate & rhythm Respiratory: positive: Diminished in bases (in RLL) Abdomen: positive: Tenderness, Distended, Taut (soft compared to worse times) Skin: positive: Pallor (sallow), Dryness Extremities: positive: Pedal edema, Other (ataxic gait) Neurologic/Psychiatric: positive: Oriented x3, Mood/affect nml, Weakness, Flat affect Palliative Care - POLST Patient has POLST: No Pain: Pain unchanged, Location (RUQ/abdominal pressure and discomfort) Tiredness/Fatigue: Moderate (4-6) Drowsiness/Sedation: Mild (1-3) Nausea: None (but did have some Monday with AB) Anorexia: Moderate (4-6) Dyspnea: Mild (1-3) Depression: Mild (1-3) Anxiety: Moderate (4-6) Feelings of wellbeing/Perceived Quality of Life: Fair, Acceptable, Improved Sleep: Sleep improved Constipation: Yes, Opoid induced, Managed Performance Status: Patient does easily get fatigued, particularly with standing. She continues to want to work, restarted with just a few appointments. She is able to manage her ADLs, household tasks, and drives short distances. - Palliative Care Discussion: Met with briefly prior to patient's arrival, provided psychosocial support, explored his feelings regarding current happenings, he does support her doing things that make her feel "normal", though has offered to drive her to work, and has reassured her she does not need to. He does understand her need for distraction. He is appropriately concerned. Met with patient, discussed at length patient's feelings regarding negative findings, is meeting with oncology tomorrow. She feels like everyone "has her in the grave", she feels like she is doing pretty well overall. Certainly expressing appropriate grief and loss with body image changes, using palliative care support appropriately to navigate. Impression and Recommendations - Palliative Care Impression: This is a tello 65-year-old woman with marginal cell zone B-cell lymphoma, currently remission, splenomegaly, and recurrent/significant ascites related to her liver damage. Patient continues with persistent pancytopenia, had been started on prophylactic antibiotics on discharge from hospital, unfortunately these were only 7 days, will follow up with oncology. She is feeling less distressed, has completed her PET scan and bone marrow biopsy without significant findings though she meets with oncology tomorrow. Palliative care continue to meet with patient for pain and symptom management, psychosocial support and anticipatory guidance. Recommendations/Counseling Done: 1. Pain of neoplastic origin. Patient's pain is multifactorial, including abdominal pressure from ascites, right upper quadrant pain most likely rated mass-effect and intermittent peripheral neuropathy. Patient is currently on OxyContin 40 mg 3 times daily, not needing any breakthrough pain medication. No further changes made, patient satisfied with regimen. 2. Ascites. Patient did have 8 L total taken off last week, and it feels like it has reaccumulated but does not feel tight or uncomfortable. We will go ahead and schedule paracentesis about 4 to 5 weeks, will follow up with Dr. Mera regarding patient's current status. She is using diuretics, continues appear quite cachectic. 3. Protein calorie malnutrition. Patient is trying to increase her intake, does have early satiety both from her lap band as well as her ascites. She is trying to increase her protein and stay hydrated.Will reach out to the dietitian, for further support and counseling. 4. Fatigue. This is multifactorial, patient has persistent anemia can worsening neutropenia. She is feeling a little bit better and improved since hospitalization, she is continue to pace herself. 5. Anxiety. Patient presents with appropriate and fluctuating anxiety. She does have multiple stressors, continues to struggle with no clear prognosis are underlying etiology regarding her recurrent ascites. We had discussed long- acting medication for her anxiety, will await if being put back on Diflucan secondary to multiple medication interactions. Patient is using alprazolam and appropriately, is feeling better, psychosocial support and counseling provided to normalize her grief and loss reactions. 6. Advanced care planning. Continuing to await further results patient is hopeful for prognostic information. She did get her DPOA done though in the hospital, and continues have conversations with her family regarding quality of life. Palliative care continue provide support, patient is hoping for both quality and quantity of life. Meets with oncology tomorrow, will follow up regarding further treatment plan or prognostic information. 65 minutes with greater than 50% of this done in counseling regarding pain and symptom management, psychosocial support, coordination with oncology GI team, and anticipatory guidance.
== END 2021-06-10 11:11 | disposition home or self-care (01) ==
LOC: PC 11:10
PROVIDERS: ATTEND Nurse Practitioner Adult Health
DX: Z51.5 Encounter for palliative care (principal); G89.3 Neoplasm related pain (acute) (chronic); C85.10 Unspecified B-cell lymphoma, unspecified site; R18.8 Other ascites; E46 Unspecified protein-calorie malnutrition; R53.83 Other fatigue; F41.9 Anxiety disorder, unspecified
CPT/HCPCS: 99350

== ENCOUNTER 2021-07-02 11:08 | Outpatient (CLI) | payer MEDICARE, OTHER ==
[2021-07-02] MEDS ORDERED: LIDOCAINE-MPF 1% 10 ML AMP ONE (12:12)
[2021-07-02] MEDS ORDERED: BUPIVACAINE 0.5% PF 10 ML VIAL ONE (12:36)
[2021-07-02] MEDS ORDERED: BUPIVACAINE 0.5% PF 10 ML VIAL IM ONE (14:10)
--- NOTE | 2021-07-02 17:54 | Ultrasound Report ---
PROCEDURE: Abdominal Paracentesis INDICATIONS: ASCITES TECHNIQUE: The indications, alternatives, benefits, risks, and complications of the procedure were explained to the patient. Written informed consent was obtained and placed in the chart. The abdomen and pelvis were examined sonographically, and an appropriate site was chosen for paracentesis. The skin was pre pared and draped in the usual sterile fashion, and 1% lidocaine was infiltrated from the skin down th rough the peritoneal surface. A 19-gauge catheter-covered needle was then introduced into the perito aamir space, the catheter was advanced and the needle was withdrawn, and thereafter peritoneal fluid w as withdrawn. The catheter was then removed and a dressing was applied. The fluid was discarded if the clinician did not order diagnostic testing of the fluid. COMPARISON: Ultrasound guided paracentesis, 05/23/2021. FINDINGS: Access site: RLQ Needle: One-Step centesis catheter with introducer needle. Fluid volume and description: 6 L, clear. Fluid sent for diagnostic testing: per referring physician. Medications: 1% lidocaine for local anaesthesia. Complications: None. IMPRESSION: Successful ultrasound-guided paracentesis. Reviewed by: Alesha Gallagher MD on 07/02/2021 5:52 PM PDT Approved by: Alesha Gallagher MD on 07/02/2021 5:52 PM PDT Station ID: [id number]
== END 2021-07-02 11:09 | disposition home or self-care (01) ==
LOC: DI 11:08
PROVIDERS: ATTEND Nurse Practitioner Adult Health
DX: K76.9 Liver disease, unspecified (principal); R18.8 Other ascites; C91.00 Acute lymphoblastic leukemia not having achieved remission
CPT/HCPCS: 49083; 83615; 84157

== ENCOUNTER 2021-09-23 12:30 | Outpatient (CLI) | payer MEDICARE, OTHER | END 2021-09-23 12:31 | disposition home or self-care (01) | LOC: DI 12:30 | PROVIDERS: ATTEND Internal Medicine Gastroenterology | DX: R18.8 Other ascites (principal); K76.89 Other specified diseases of liver; I35.1 Nonrheumatic aortic (valve) insufficiency; I51.7 Cardiomegaly | CPT/HCPCS: 36415; 80053; 85610; 93306 ==

== ENCOUNTER 2021-09-23 13:39 | Outpatient (CLI) | payer MEDICARE, OTHER ==
[2021-09-23 14:10] LABS: ALBUMIN 4.6 g/dL (3.2-5.5); ALBUMIN/GLOBULIN RATIO 1.9 (1.0-2.2); BILIRUBIN,TOTAL 0.7 mg/dL (0.2-1.0); CALCIUM 10.1 mg/dL (8.5-10.3); CREATININE 1.2 mg/dL (0.4-1.0); POTASSIUM 4.6 mmol/L (3.5-5.0)
[2021-09-23 14:26] LABS: INR 1.2 (0.8-1.2); PT - PROTHROMBIN TIME 13.1 secs (9.9-12.6)
== END 2021-09-23 13:40 | disposition home or self-care (01) ==
LOC: LAB 13:39
PROVIDERS: ATTEND Internal Medicine Gastroenterology
DX: R18.8 Other ascites (principal); K76.89 Other specified diseases of liver
CPT/HCPCS: 36415; 80053; 85610

== ENCOUNTER 2021-12-23 12:01 | Outpatient (CLI) | payer MEDICARE, OTHER ==
[2021-12-23 18:09] LABS: THYROID STIMULATING HORMONE 2.32 uIU/mL (0.34-5.60)
== END 2021-12-23 12:02 | disposition home or self-care (01) ==
LOC: LAB.N 12:01
PROVIDERS: ATTEND Physician Assistant Medical
DX: E03.9 Hypothyroidism, unspecified (principal)
CPT/HCPCS: 36415; 84443

== ENCOUNTER 2022-01-10 11:25 | Outpatient (CLI) | payer MEDICARE, OTHER ==
--- NOTE | 2022-01-14 15:38 | Mammography Report ---
BILATERAL DIGITAL SCREENING MAMMOGRAM 3D/2D: 01/10/2022 CLINICAL: Routine screening. Comparison is made to exams dated: 09/19/2007 mammogram and 08/25/2007 mammogram - [facility]. Both breasts are almost entirely fatty (category a/<25% glandular tissue). No significant masses, calcifications, or other findings are seen in either breast. There has been no significant interval change. IMPRESSION: NEGATIVE There is no mammographic evidence of malignancy. A 1 year screening mammogram is recommended. Based on the Tyrer Cuzick model (a risk assessment model) the patients lifetime risk is 6.2% and her 10 year risk is 3.3%. According to the ACR, ACS, and NCCN guidelines, an annual breast MRI exam jorge a g with mammogram is recommended if the patients lifetime risk is 20% or greater. This exam was interpreted at Station ID: [id number]. NOTE: For mammograms, a report in lay terms will be sent to the patient. Approximately 15% of breast malignancies will not be visualized mammographically. In the management of a palpable breast mass, a negative mammogram must not discourage biopsy of a clinically suspicious lesion. Electronically Signed By: Antoine Loza M.D., jr/jenae:01/14/2022 09:56:20 ACR BI-RADS Category 1: Negative 3341F PARENCHYMAL PATTERN: (F) - The breast(s) demonstrate(s) diffuse fatty replacement. BI-RADS CATEGORY: (1) - 1 RECOMMENDATION: (ANNUAL) - Recommend routine annual screening mammography. [id number] 1 year screening LATERALITY: (B)
== END 2022-01-10 11:26 | disposition home or self-care (01) ==
LOC: DI.N 11:25
DX: Z12.31 Encounter for screening mammogram for malignant neoplasm of breast (principal)

== ENCOUNTER 2022-10-10 08:13 | Outpatient (CLI) | payer MEDICARE, OTHER ==
[2022-10-10 12:57] LABS: ALBUMIN 4.4 g/dL (3.2-5.5); ALBUMIN/GLOBULIN RATIO 1.8 (1.0-2.2); BILIRUBIN,TOTAL 0.9 mg/dL (0.2-1.0); CREATININE 1.2 mg/dL (0.6-1.3); POTASSIUM 4.4 mmol/L (3.5-4.5); TOTAL PROTEIN 6.8 g/dL (6.4-8.9)
[2022-10-10 13:19] LABS: THYROID STIMULATING HORMONE 1.56 uIU/mL (0.34-5.60)
== END 2022-10-10 08:14 | disposition home or self-care (01) ==
LOC: LAB.N 08:13
PROVIDERS: ATTEND Physician Assistant Medical
DX: C85.90 Non-Hodgkin lymphoma, unspecified, unspecified site (principal); E03.9 Hypothyroidism, unspecified
CPT/HCPCS: 36415; 80053; 84443

== ENCOUNTER 2022-11-01 12:45 | Outpatient (CLI) | payer MEDICARE, OTHER ==
--- NOTE | 2022-11-01 14:18 | DEXA Report ---
PROCEDURE: Dexa Spine and/or Hip INDICATIONS: POST MENOPAUSAL TECHNIQUE: Dual energy x-ray absorptiometry (DXA) was performed on a One Season System. Regions measur ed are the AP Spine, femoral neck, and if needed forearm. COMPARISON: None. FINDINGS: Lumbar Spine: Bone Mineral Density 0.944 g/cm/cm,T score -2.0. Left Femoral Neck: Bone Mineral Density 0.761 g/cm/cm, T score -2.0. Left Hip: Bone Mineral Density 0.877 g/cm/cm,T score -1.0. (T score greater or equal to -1.0: NORMAL) (T score from -1.1 to -2.4: OSTEOPENIA) (T score less than or equal to -2.5 to: OSTEOPOROSIS) Impression: By WHO criteria, this patient has low bone density (osteopenia). Patients with diagnosis of osteoporosis or osteopenia should have regular bone mineral density assess ment. For those eligible for Medicare, routine testing is allowed once every 2 years. Testing frequ ency can be increased for patients who have rapidly progressing disease or for those who are receivin g medical therapy to restore bone mass. Reviewed by: Alesha Gallagher MD on 11/01/2022 2:17 PM PDT Approved by: Alesha Gallagher MD on 11/01/2022 2:17 PM PDT Station ID: [id number]
== END 2022-11-01 12:46 | disposition home or self-care (01) ==
LOC: DI 12:45
PROVIDERS: ATTEND Physician Assistant Medical
DX: Z78.0 Asymptomatic menopausal state (principal); M85.80 Other specified disorders of bone density and structure, unspecified site

== ENCOUNTER 2022-12-07 15:16 | Outpatient (CLI) | payer MEDICARE, OTHER ==
[2022-12-07 15:30] LABS: ESTIMATED AVERAGE GLUCOSE 120 mg/dL (70-100); HEMOGLOBIN A1c% 5.8 % (4.27-6.07)
== END 2022-12-07 15:17 | disposition home or self-care (01) ==
LOC: LAB 15:16
PROVIDERS: ATTEND Nurse Practitioner Adult Health
DX: R73.9 Hyperglycemia, unspecified (principal)
CPT/HCPCS: 36415; 83036

== ENCOUNTER 2023-04-11 10:58 | Outpatient (CLI) | payer MEDICARE, OTHER ==
[2023-04-11 11:12] LABS: BASOPHILS % (AUTO) 0.3 %; EOSINOPHILS # (AUTO) 0.1 10^3/uL (0.0-0.7); EOSINOPHILS % (AUTO) 3.6 %; HCT - HEMATOCRIT 41.7 % (37.0-47.0); LYMPHOCYTES # (AUTO) 0.6 10^3/uL (1.5-3.5); LYMPHOCYTES % (AUTO) 21.1 %; MEAN CORPUSCULAR HGB CONC 33.6 g/dL (32.0-36.0); MEAN CORPUSCULAR VOLUME 89.3 fL (81.0-99.0); MEAN PLATELET VOLUME 9.9 fL (7.9-10.8); MONOCYTES # (AUTO) 0.3 10^3/uL (0.0-1.0); MONOCYTES % (AUTO) 8.6 %; NEUTROPHILS % (AUTO) 66.1 %; PLT - PLATELET COUNT 125 10^3/uL (130-450); RED BLOOD COUNT 4.67 10^6/uL (4.20-5.40); RED CELL DISTRIBUTION WIDTH 13.5 % (12.0-15.0)
[2023-04-11 11:40] LABS: ALBUMIN 4.4 g/dL (3.2-5.5); ALBUMIN/GLOBULIN RATIO 1.9 (1.0-2.2); BILIRUBIN,TOTAL 0.8 mg/dL (0.2-1.0); CALCIUM 9.7 mg/dL (8.5-10.3); CREATININE 1.2 mg/dL (0.6-1.3); POTASSIUM 4.4 mmol/L (3.5-4.5); TOTAL PROTEIN 6.7 g/dL (6.4-8.9)
[2023-04-11 11:55] LABS: THYROID STIMULATING HORMONE 2.08 uIU/mL (0.34-5.60)
[2023-04-11 12:00] LABS: FERRITIN 119.2 ng/mL (11.0-306.8)
== END 2023-04-11 10:59 | disposition home or self-care (01) ==
LOC: LAB 10:58
PROVIDERS: ATTEND Family Medicine
DX: K76.9 Liver disease, unspecified (principal); N95.1 Menopausal and female climacteric states; R23.2 Flushing; C85.90 Non-Hodgkin lymphoma, unspecified, unspecified site; R63.5 Abnormal weight gain
CPT/HCPCS: 36415; 80053; 82728; 84443; 85025

== ENCOUNTER 2023-06-05 08:00 | Outpatient (CLI) | payer MEDICARE, OTHER | END 2023-06-05 23:59 | disposition home or self-care (01) | LOC: PC 08:00 | PROVIDERS: ATTEND Nurse Practitioner Adult Health | DX: Z51.5 Encounter for palliative care (principal); C85.90 Non-Hodgkin lymphoma, unspecified, unspecified site; G89.4 Chronic pain syndrome; K76.9 Liver disease, unspecified; I10 Essential (primary) hypertension; R27.9 Unspecified lack of coordination; M54.16 Radiculopathy, lumbar region; F41.8 Other specified anxiety disorders; B99.8 Other infectious disease; Z91.81 History of falling | CPT/HCPCS: 99215 ==

== ENCOUNTER 2023-10-13 08:00 | Outpatient (CLI) | payer MEDICARE, OTHER | END 2023-10-13 23:59 | disposition home or self-care (01) | LOC: PC 08:00 | PROVIDERS: ATTEND Nurse Practitioner Adult Health | DX: Z51.5 Encounter for palliative care (principal); I12.9 Hypertensive chronic kidney disease with stage 1 through stage 4 chronic kidney disease, or unspecified chronic kidney disease; N18.32 Chronic kidney disease, stage 3b; G89.29 Other chronic pain; M54.16 Radiculopathy, lumbar region; D72.819 Decreased white blood cell count, unspecified; R23.2 Flushing; Z85.72 Personal history of non-Hodgkin lymphomas; F41.9 Anxiety disorder, unspecified; F32.A Depression, unspecified; Z79.891 Long term (current) use of opiate analgesic | CPT/HCPCS: 99215 ==

== ENCOUNTER 2023-10-31 14:08 | Outpatient (CLI) | payer MEDICARE, OTHER ==
[2023-10-31 14:33] LABS: BILIRUBIN,TOTAL 0.5 mg/dL (0.2-1.0); CALCIUM 9.1 mg/dL (8.5-10.3); CREATININE 1.2 mg/dL (0.6-1.3)
== END 2023-10-31 14:09 | disposition home or self-care (01) ==
LOC: LAB 14:08
PROVIDERS: ATTEND Nurse Practitioner Adult Health
DX: N18.32 Chronic kidney disease, stage 3b (principal)
CPT/HCPCS: 36415; 80053

== ENCOUNTER 2023-11-22 14:48 | Outpatient (CLI) | payer MEDICARE, OTHER ==
--- NOTE | 2023-11-24 12:13 | Mammography Report ---
BILATERAL DIGITAL SCREENING MAMMOGRAM 3D/2D: 11/22/2023 CLINICAL: Routine screening. Comparison is made to exams dated: 01/10/2022 mammogram - [facility], 11/19/2012 adelaida mogram - [facility], 09/19/2007 mammogram, and 08/25/2007 mammogram - [facility]. The breasts are almost entirely fatty (category a/<25% glandular tissue). There are benign vascular calcifications in both breasts. No significant masses, calcifications, or other findings are seen in either breast. There has been no significant interval change. IMPRESSION: BENIGN There is no mammographic evidence of malignancy. A 1 year screening mammogram is recommended. Based on the Tyrer Cuzick model (a risk assessment model) the patient's lifetime risk is 3.7% and her 10 year risk is 2.2%. According to the ACR, ACS, and NCCN guidelines, an annual breast MRI exam jorge a g with mammogram is recommended if the patient's lifetime risk is 20% or greater. This exam was interpreted at Station ID: [id number]. NOTE: For mammograms, a report in lay terms will be sent to the patient. Approximately 15% of breast malignancies will not be visualized mammographically. In the management of a palpable breast mass, a negative mammogram must not discourage biopsy of a clinically suspicious lesion. Electronically Signed By: Bernadette killian/jenae:11/23/2023 17:23:24 letter sent: No_Letter ACR BI-RADS Category 2: Benign PARENCHYMAL PATTERN: (F) - The breast(s) demonstrate(s) diffuse fatty replacement. BI-RADS CATEGORY: (2) - 2 RECOMMENDATION: (ANNUAL) - Recommend routine annual screening mammography. [id number] 1 year screening LATERALITY: (B)
== END 2023-11-22 14:49 | disposition home or self-care (01) ==
LOC: DI.N 14:48
DX: Z12.31 Encounter for screening mammogram for malignant neoplasm of breast (principal); R92.1 Mammographic calcification found on diagnostic imaging of breast